=== PATIENT | female | born 1950 | race Caucasian/White ===

== ENCOUNTER 2017-01-28 08:51 | Day surgery (SDC) | payer OTHER ==
[2017-01-21 14:10] VITALS: BMI 19.3
[~2017-01-28 08:51] MED LIST: LACTATED RINGERS 1,000 ML IV SCH
[2017-01-28] MEDS: CYCLOPENTOLATE 1% OPHTH SOLN 2 ML BTL OP ONE ×3 (09:40→09:57)
[2017-01-28] MEDS: FLURBIPROFEN 0.03% OPHTH DROPS 2.5 ML BTL OP ONE ×3 (09:42→09:59)
[2017-01-28] MEDS: PHENYLEPHRINE 10% OPHTH DROPS 5 ML BTL OP ONE ×3 (09:44→10:03)
[2017-01-28] MEDS ORDERED: LACTATED RINGERS 1,000 ML IV ONE (09:45)
[2017-01-28] MEDS ORDERED: LIDOCAINE 1% 20 ML VIAL (10MG/ML) FOR IV START INTRADERMA ONE (09:45)
[2017-01-28 10:03] VITALS: RESP 16; TEMP 96.9
[2017-01-28] MEDS ORDERED: PROPOFOL 10 MG/ML 20 ML VIAL IV ONE (10:11)
[2017-01-28] MEDS ORDERED: HYALURONATE SODIUM INTRAOCULAR 1 EACH SYRINGE (10MG/ML) INTRAOCULA ONE (10:21)
[2017-01-28] MEDS ORDERED: BALANCED SALT IRRIG SOLN COMB2 15 ML IRRIG.SOLN INTRAOCULA ONE (10:21)
[2017-01-28] MEDS ORDERED: EPINEPHrine (PF) 0.5 ML in BALANCED SALT IRRIG SOLN COMB2 500 ML IRRIGATION ONE (10:22)
--- NOTE | 2017-01-28 10:36 | P.OP ---
Date of Procedure: 01/28/17 Preoperative Diagnosis: Postoperative Diagnosis: Procedure(s) Performed: PREOPERATIVE DIAGNOSIS: Cataract, right eye. POSTOPERATIVE DIAGNOSIS: Cataract, right eye. OPERATION: Phacoemulsification cataract, right eye. DESCRIPTION OF PROCEDURE: The patient was taken to the preoperative holding area. Intravenous Propofol was given so as to bring about adequate sedation. The following mixture was given for local anesthesia: 5 mL of 2% lidocaine, 5 mL of 0.75% Marcaine, and 1 mL of Wydase. Approximately 4 mL was injected in the retrobulbar space of the surgical eye. Additional 1 mL was then directed to the temporal area of the surgical eye. This was performed to allow adequate neurological block of the facial muscles. The patient was revived and then taken into the operative room. The patient was prepped and draped in the usual sterile manner for the operative eye. A lid speculum was put into position. The conjunctiva was resected back from the limbus in the 12 o'clock position. Bleeding was controlled with electrocautery. A #69 blade was then used and a half-thickness scleral incision approximately 1-mm posterior to the limbus was made on bare sclera. This was shelved in the clear cornea using a crescent knife. Next a 15-degree blade was used to make a stab incision at the 3 o' clock position at the corneolimbal interface. Keratome blade was then used and the superior wound was extended into the anterior chamber. Viscoelastic was injected into the anterior chamber and to maintain its form. Next, a cystotome was used and a continuous anterior capsulotomy was made without difficulty. Hydrodissection using a blunt cannula and BSS was performed. Phaco probe was then employed and a groove extending from 12 to 6 o'clock in the lens was created. A Man wand was used through the stab incision so as to perform a divide and conquer technique. Next an irrigation aspiration probe was utilized and any residual cortex was removed from the eye. Again, viscoelastic was injected into the anterior chamber. An Richard posterior chamber lens implant was placed in the cartridge and injected into the anterior chamber without difficulty. The TATE'S LISTey hook was utilized to spin the lens into position and this was again performed without any difficulty. The irrigation and aspiration probe was again employed and any residual viscoelastic was removed from the eye. Then BSS was injected into the limbal stab incision and the anterior chamber re-inflated. The conjunctiva was reapproximated using electrocautery. One drop of 0.25% Timoptic was placed over the corneal along with TobraDex ophthalmic ointment. Two sterile patches and a Bee eye shield were taped into position. The patient was transported to the recovery room in stable condition. Implants: Pathology: none sent Condition: stable Disposition: same day Indications for Procedure: Operative Findings: Description of Procedure:
[2017-01-28 10:54] VITALS: BP 118/69; PULSE 58
[2017-01-28] MEDS ORDERED: GENTAMICIN/PREDNISOL AC OPHTH OINT 3.5GM OPHTHALMIC ONE (23:00)
[2017-01-28] MEDS ORDERED: TIMOLOL 0.5% OPHTH SOLN (PF) 0.2 ML DROPERETTE OP ONE (23:00)
[2017-01-28] MEDS ORDERED: BUPIVACAINE (PF) 0.75% 5 ML, LIDOCAINE 4% (PF) 5 ML, HYALURONIDASE, HUMAN RECOMB 150 UNIT MISCELLANE ONE ×3 (23:00)
== END 2017-01-28 11:27 | disposition home or self-care (01) ==
LOC: OR 08:51
PROVIDERS: ATTEND Ophthalmology
DX: H25.13 Age-related nuclear cataract, bilateral (principal); F17.200 Nicotine dependence, unspecified, uncomplicated; I10 Essential (primary) hypertension; G62.9 Polyneuropathy, unspecified; E78.5 Hyperlipidemia, unspecified; E07.9 Disorder of thyroid, unspecified; J44.9 Chronic obstructive pulmonary disease, unspecified; Z88.0 Allergy status to penicillin; Z79.899 Other long term (current) drug therapy
CPT/HCPCS: 66984; V2632; J2001; J3470; J0171; J2704

== ENCOUNTER 2017-03-18 08:47 | Day surgery (SDC) | payer OTHER ==
[2017-03-10 14:48] VITALS: BMI 19.6
[~2017-03-18 08:47] MED LIST changes: +LIDOCAINE 1% 20 ML VIAL (10MG/ML) FOR IV START INTRADERMA PRN
[2017-03-18 10:35] VITALS: RESP 16; TEMP 97.9
[2017-03-18] MEDS ORDERED: fentaNYL (PF) 50 MCG/ML 2 ML AMP ONE (11:22)
[2017-03-18] MEDS ORDERED: PROPOFOL 10 MG/ML 20 ML VIAL IV ONE (11:22)
[2017-03-18] MEDS ORDERED: EPINEPHrine (PF) 0.5 ML in BALANCED SALT IRRIG SOLN COMB2 500 ML IRRIGATION ONE (11:22)
[2017-03-18] MEDS ORDERED: HYALURONATE SODIUM INTRAOCULAR 1 EACH SYRINGE (10MG/ML) INTRAOCULA ONE (11:25)
[2017-03-18] MEDS ORDERED: NEOMYCIN-POLYMYXIN-DEXAMETH OINT 3.5 GM TUBE LEFT EYE ONE (11:25)
[2017-03-18] MEDS ORDERED: BALANCED SALT IRRIG SOLN COMB2 15 ML IRRIG.SOLN INTRAOCULA ONE (11:25)
[2017-03-18] MEDS ORDERED: TIMOLOL 0.5% OPHTH SOLN (PF) 0.2 ML DROPERETTE LEFT EYE ONE (11:26)
[2017-03-18] MEDS ORDERED: TETRACAINE 0.5% OPHTH (PF) DROPS 4 ML BTL LEFT EYE ONE (11:34)
--- NOTE | 2017-03-18 11:45 | P.OP ---
Date of Procedure: 03/18/17 Preoperative Diagnosis: Postoperative Diagnosis: Procedure(s) Performed: PREOPERATIVE DIAGNOSIS: Cataract, left eye. POSTOPERATIVE DIAGNOSIS: Cataract, left eye. OPERATION: Phacoemulsification cataract, left eye. DESCRIPTION OF PROCEDURE: The patient was taken to the preoperative holding area. Intravenous Propofol was given so as to bring about adequate sedation. The following mixture was given for local anesthesia: 5 mL of 2% lidocaine, 5 mL of 0.75% Marcaine, and 1 mL of Wydase. Approximately 4 mL was injected in the retrobulbar space of the surgical eye. Additional 1 mL was then directed to the temporal area of the surgical eye. This was performed to allow adequate neurological block of the facial muscles. The patient was revived and then taken into the operative room. The patient was prepped and draped in the usual sterile manner for the operative eye. A lid speculum was put into position. The conjunctiva was resected back from the limbus in the 12 o'clock position. Bleeding was controlled with electrocautery. A #69 blade was then used and a half-thickness scleral incision approximately 1-mm posterior to the limbus was made on bare sclera. This was shelved in the clear cornea using a crescent knife. Next a 15-degree blade was used to make a stab incision at the 3 o' clock position at the corneolimbal interface. Keratome blade was then used and the superior wound was extended into the anterior chamber. Viscoelastic was injected into the anterior chamber and to maintain its form. Next, a cystotome was used and a continuous anterior capsulotomy was made without difficulty. Hydrodissection using a blunt cannula and BSS was performed. Phaco probe was then employed and a groove extending from 12 to 6 o'clock in the lens was created. A Man wand was used through the stab incision so as to perform a divide and conquer technique. Next an irrigation aspiration probe was utilized and any residual cortex was removed from the eye. Again, viscoelastic was injected into the anterior chamber. An Richard posterior chamber lens implant was placed in the cartridge and injected into the anterior chamber without difficulty. The Stem CentRxey hook was utilized to spin the lens into position and this was again performed without any difficulty. The irrigation and aspiration probe was again employed and any residual viscoelastic was removed from the eye. Then BSS was injected into the limbal stab incision and the anterior chamber re-inflated. The conjunctiva was reapproximated using electrocautery. One drop of 0.25% Timoptic was placed over the corneal along with TobraDex ophthalmic ointment. Two sterile patches and a Bee eye shield were taped into position. The patient was transported to the recovery room in stable condition. Implants: Pathology: none sent Condition: stable Disposition: same day Indications for Procedure: Operative Findings: Description of Procedure:
[2017-03-18 11:51] VITALS: PULSE 60
[2017-03-18 12:11] VITALS: BP 137/63
[2017-03-18] MEDS ORDERED: BUPIVACAINE (PF) 0.75% 5 ML, LIDOCAINE 4% (PF) 5 ML, HYALURONIDASE, HUMAN RECOMB 150 UNIT MISCELLANE ONE ×3 (23:00)
[2017-03-18] MEDS ORDERED: PHENYLEPHRINE 10% OPHTH DROPS 5 ML BTL OP ONE (23:00)
[2017-03-18] MEDS ORDERED: GENTAMICIN/PREDNISOL AC OPHTH OINT 3.5GM OPHTHALMIC ONE (23:00)
[2017-03-18] MEDS ORDERED: CYCLOPENTOLATE 1% OPHTH SOLN 2 ML BTL OP ONE (23:00)
[2017-03-18] MEDS ORDERED: FLURBIPROFEN 0.03% OPHTH DROPS 2.5 ML BTL OP ONE (23:00)
[2017-03-18] MEDS ORDERED: TIMOLOL 0.5% OPHTH SOLN (PF) 0.2 ML DROPERETTE OP ONE (23:00)
== END 2017-03-18 12:40 | disposition home or self-care (01) ==
LOC: OR 08:47
PROVIDERS: ATTEND Ophthalmology
DX: H25.12 Age-related nuclear cataract, left eye (principal); I10 Essential (primary) hypertension; E78.5 Hyperlipidemia, unspecified; J44.9 Chronic obstructive pulmonary disease, unspecified; E07.9 Disorder of thyroid, unspecified; G62.9 Polyneuropathy, unspecified; F17.200 Nicotine dependence, unspecified, uncomplicated; Z79.891 Long term (current) use of opiate analgesic; Z79.899 Other long term (current) drug therapy; Z88.0 Allergy status to penicillin
CPT/HCPCS: 66984; V2632; J2001; J3470; J0171; J3010; J2704

== ENCOUNTER 2020-09-28 12:32 | Observation (INO) | payer OTHER ==
[2020-09-28] MEDS ORDERED: MORPHINE SULFATE 4 MG/ML SYRINGE IV STA (12:40)
--- NOTE | 2020-09-28 12:55 | ED ---
General Adult HPI - General Stated complaint: Chest Pain/SOB Time Seen by Provider: 09/28/20 12:33 Source: patient, EMS, RN notes reviewed, old records reviewed Mode of arrival: EMS - History of Present Illness Initial comments: 70-year-old female presented for evaluation of upper abdominal pain and lower chest pain. History of anginal chest pain which she states she has almost every single day. Today her symptoms did not resolve after approximately 4 hours. She presented to emergency department via EMS. She has a history of an abdominal aortic aneurysm she states she has not had surgical intervention on this. She has no previous history of NE or cardiac stenting. She does report some associated nausea and one episode of vomiting. Patient has chronic pain and follows with neurology. She currently has a stimulator in her lumbar spine. No cough or fever. - Related Data Home Medications Medication Instructions Recorded Confirmed Atenolol [Tenormin] 25 mg PO DAILY 11/06/14 09/28/20 Atorvastatin [Lipitor] 20 mg PO DAILY 11/06/14 09/28/20 Baclofen 30 mg PO HS 11/06/14 09/28/20 Levothyroxine Sodium [Synthroid] 50 mcg PO DAILY 07/05/15 09/28/20 clonazePAM 2 mg PO BID PRN 07/05/15 09/28/20 Albuterol Sulfate [Ventolin HFA] 2 puff INHALATION RT-QID PRN 09/28/20 09/28/20 Gabapentin [Neurontin] 300 mg PO TID PRN 09/28/20 09/28/20 Soy Isofla/Blk Cohosh/Mag Bark 155 mg PO DAILY 09/28/20 09/28/20 [Estroven 155 mg Capsule] Allergies Allergy/AdvReac Type Severity Reaction Status Date / Time Penicillins Allergy Unknown Verified 09/28/20 13:11 Review of Systems ROS Statement: Those systems with pertinent positive or pertinent negative responses have been documented in the HPI. ROS Other: All systems not noted in ROS Statement are negative. Past Medical History Past Medical History: COPD, Hyperlipidemia, Hypertension, Thyroid Disorder Additional Past Medical History / Comment(s): neuropathy, aneursym and blood clot rt lower rib area History of Any Multi-Drug Resistant Organisms: None Reported Past Surgical History: Back Surgery, Breast Surgery, Section, Hysterectomy Additional Past Surgical History / Comment(s): 3 lower back surgeries- has implants and thuy, bilateral breast cystectomies, 4 C-Sections, surgery to rt lung to repair holes in lungs "stented and coiled", rt cataract Past Anesthesia/Blood Transfusion Reactions: No Reported Reaction Additional Past Anesthesia/Blood Transfusion Reaction / Comment(s): Pt has never recieved blood. Past Psychological History: No Psychological Hx Reported Smoking Status: Current every day smoker Past Alcohol Use History: Occasional Past Drug Use History: None Reported - Past Family History Brother(s) Family Medical History: Cancer Sister(s) Family Medical History: Cancer Father Family Medical History: Myocardial Infarction (NE) Additional Family Medical History / Comment(s): Father at age 52 yrs of a NE. Mother Family Medical History: Cancer, Coronary Artery Disease (CAD), Hyperlipidemia Additional Family Medical History / Comment(s): Mother at age 72 yrs of lung cancer. General Exam General appearance: alert, in no apparent distress Head exam: Present: atraumatic, normocephalic Eye exam: Present: normal appearance, PERRL ENT exam: Present: normal exam Neck exam: Present: normal inspection. Absent: tenderness, meningismus Respiratory exam: Present: normal lung sounds bilaterally. Absent: respiratory distress Cardiovascular Exam: Present: regular rate, normal rhythm GI/Abdominal exam: Present: soft. Absent: distended, tenderness, guarding, rebound Extremities exam: Present: normal inspection, normal capillary refill. Absent: pedal edema Neurological exam: Present: alert, oriented X3, CN II-XII intact. Absent: motor sensory deficit Psychiatric exam: Present: normal affect, normal mood Skin exam: Present: warm, dry, intact. Absent: cyanosis, diaphoretic Course Vital Signs 09/28/20 09/28/20 12:36 15:04 Temperature 97.7 F Pulse Rate 70 56 L Respiratory 18 18 Rate Blood Pressure 141/97 124/64 O2 Sat by Pulse 95 95 Oximetry EKG Findings - EKG Comments: EKG Findings:: . This appears to be sinus rhythm which is no complex, rate of 64, QRS duration 160, QTC appears normal, there is no way to differentiate aiding ST segment elevation on this EKG secondary to neuro stimulator artifact. Repeat EKG, normal sinus rhythm, rate of 62, NJ interval 136, QRS duration 98, QTC 43, no ST segment elevation, EKG was repeated at 1304. Medical Decision Making - Medical Decision Making 62-year-old female presenting with an episode chest pain and upper abdominal pain. EKG sinus rhythm without ST segment elevation. Chest x-ray is negative for acute cardiopulmonary disease, showing some chronic changes. CT angiography is performed given her history of abdominal aortic aneurysm this is negative for aneurysm, negative for dissection, negative for acute findings. Her symptoms are improved while in the emergency department. Her initial troponin is negative. I did discuss case with Dr. Guido who will admit for chest pain rule out. Cardiology placed on consult. - Lab Data Result diagrams: 09/28/20 12:59 09/28/20 12:59 Lab Results 09/28/20 09/28/20 09/28/20 Range/Units 12:59 12:59 12:59 WBC 5.8 (3.8-10.6) k/uL RBC 4.48 (3.80-5.40) m/uL Hgb 14.0 (11.4-16.0) gm/dL Hct 41.6 (34.0-46.0) % MCV 92.8 (80.0-100.0) fL MCH 31.2 (25.0-35.0) pg MCHC 33.6 (31.0-37.0) g/dL RDW 13.9 (11.5-15.5) % Plt Count 154 (150-450) k/uL MPV 7.0 Neutrophils % 53 % Lymphocytes % 39 % Monocytes % 4 % Eosinophils % 2 % Basophils % 1 % Neutrophils # 3.1 (1.3-7.7) k/uL Lymphocytes # 2.3 (1.0-4.8) k/uL Monocytes # 0.3 (0-1.0) k/uL Eosinophils # 0.1 (0-0.7) k/uL Basophils # 0.0 (0-0.2) k/uL PT 10.5 (9.0-12.0) sec INR 1.0 (<1.2) APTT 23.9 (22.0-30.0) sec Sodium 137 (137-145) mmol/L Potassium 4.5 (3.5-5.1) mmol/L Chloride 111 H (98-107) mmol/L Carbon Dioxide 22 (22-30) mmol/L Anion Gap 4 mmol/L BUN 16 (7-17) mg/dL Creatinine 0.44 L (0.52-1.04) mg/dL Est GFR (CKD-EPI)AfAm >90 (>60 ml/min/1.73 sqM) Est GFR (CKD-EPI)NonAf >90 (>60 ml/min/1.73 sqM) Glucose 104 H (74-99) mg/dL Plasma Lactic Acid Grady (0.7-2.0) mmol/L Calcium 8.8 (8.4-10.2) mg/dL Magnesium 1.8 (1.6-2.3) mg/dL Total Bilirubin 0.4 (0.2-1.3) mg/dL AST 26 (14-36) U/L ALT 16 (4-34) U/L Alkaline Phosphatase 85 (38-126) U/L Troponin I (0.000-0.034) ng/mL NT-Pro-B Natriuret Pep pg/mL Total Protein 6.1 L (6.3-8.2) g/dL Albumin 3.6 (3.5-5.0) g/dL Lipase 217 (23-300) U/L 09/28/20 09/28/20 09/28/20 Range/Units 12:59 12:59 12:59 WBC (3.8-10.6) k/uL RBC (3.80-5.40) m/uL Hgb (11.4-16.0) gm/dL Hct (34.0-46.0) % MCV (80.0-100.0) fL MCH (25.0-35.0) pg MCHC (31.0-37.0) g/dL RDW (11.5-15.5) % Plt Count (150-450) k/uL MPV Neutrophils % % Lymphocytes % % Monocytes % % Eosinophils % % Basophils % % Neutrophils # (1.3-7.7) k/uL Lymphocytes # (1.0-4.8) k/uL Monocytes # (0-1.0) k/uL Eosinophils # (0-0.7) k/uL Basophils # (0-0.2) k/uL PT (9.0-12.0) sec INR (<1.2) APTT (22.0-30.0) sec Sodium (137-145) mmol/L Potassium (3.5-5.1) mmol/L Chloride (98-107) mmol/L Carbon Dioxide (22-30) mmol/L Anion Gap mmol/L BUN (7-17) mg/dL Creatinine (0.52-1.04) mg/dL Est GFR (CKD-EPI)AfAm (>60 ml/min/1.73 sqM) Est GFR (CKD-EPI)NonAf (>60 ml/min/1.73 sqM) Glucose (74-99) mg/dL Plasma Lactic Acid Grady 1.0 (0.7-2.0) mmol/L Calcium (8.4-10.2) mg/dL Magnesium (1.6-2.3) mg/dL Total Bilirubin (0.2-1.3) mg/dL AST (14-36) U/L ALT (4-34) U/L Alkaline Phosphatase (38-126) U/L Troponin I <0.012 (0.000-0.034) ng/mL NT-Pro-B Natriuret Pep 121 pg/mL Total Protein (6.3-8.2) g/dL Albumin (3.5-5.0) g/dL Lipase (23-300) U/L Disposition Clinical Impression: Chest pain Disposition: ADMITTED IP TO THIS [facility] Condition: Stable Is patient prescribed a controlled substance at d/c from ED?: No Referrals: Nonstaff,Physician [Primary Care Provider] - 1-2 days Decision to Admit Reason: Admit from EC Decision Date: 09/28/20 Decision Time: 15:33
[2020-09-28] MEDS ORDERED: ONDANSETRON 4 MG/2 ML VIAL IVP STA (13:12)
[2020-09-28 13:27] LABS: Basophils % (A) 1 %; Eosinophils # (A) 0.1 k/uL (0-0.7); Eosinophils % (A) 2 %; HCT 41.6 % (34.0-46.0); Lymphocytes # (A) 2.3 k/uL (1.0-4.8); Lymphocytes % (A) 39 %; MCH 31.2 pg (25.0-35.0); MCHC 33.6 g/dL (31.0-37.0); MCV 92.8 fL (80.0-100.0); Monocytes # (A) 0.3 k/uL (0-1.0); Monocytes % (A) 4 %; Neutrophils # (A) 3.1 k/uL (1.3-7.7); Neutrophils % (A) 53 %; Platelet Count 154 k/uL (150-450); RBC 4.48 m/uL (3.80-5.40); RDW 13.9 % (11.5-15.5); WBC 5.8 k/uL (3.8-10.6)
[2020-09-28 13:32] LABS: Partial Thromboplastin Time 23.9 sec (22.0-30.0); Prothrombin Time 10.5 sec (9.0-12.0)
[2020-09-28 13:34] LABS: ALT 16 U/L (4-34); AST 26 U/L (14-36); African American GFR (CKD) >90 (>60 ml/min/1.73 sqM); Albumin 3.6 g/dL (3.5-5.0); Alkaline Phosphatase 85 U/L (38-126); Anion Gap 4 mmol/L; Blood Urea Nitrogen 16 mg/dL (7-17); Calcium 8.8 mg/dL (8.4-10.2); Carbon Dioxide 22 mmol/L (22-30); Chloride 111 mmol/L (98-107); Glucose 104 mg/dL (74-99); Lipase 217 U/L (23-300); Magnesium 1.8 mg/dL (1.6-2.3); Non-African American GFR(CKD) >90 (>60 ml/min/1.73 sqM); Sodium 137 mmol/L (137-145); Total Bilirubin 0.4 mg/dL (0.2-1.3); Total Protein 6.1 g/dL (6.3-8.2)
[2020-09-28 13:35] LABS: Potassium 4.5 mmol/L (3.5-5.1)
--- NOTE | 2020-09-28 14:01 | XR ---
EXAMINATION TYPE: XR chest 1V portable DATE OF EXAM: 09/28/2020 COMPARISON: Chest x-ray and CT chest July 05, 2015 HISTORY: Chest pain. TECHNIQUE: Single AP portable frontal upright view of the chest is obtained. FINDINGS: Background Chronic emphysematous and pulmonary fibrotic change including right apical 1.5 c m scarlike opacity all redemonstrated. There is no new suspicious focal air space opacity, pleural ef fusion, or pneumothorax seen. The cardiac silhouette size is stable and within normal limits. Spinal stimulator device in the mid thoracic spinal canal redemonstrated. Surgical clips project in right p aratracheal region may be external to patient, correlate clinically. IMPRESSION: Chronic changes without new acute pulmonary process.
--- NOTE | 2020-09-28 14:51 | CT ---
EXAMINATION TYPE: CT angio thor/abd pel aorta DATE OF EXAM: 09/28/2020 COMPARISON: CTA aorta April 28, 2015 HISTORY: Chest pain with history of aneurysm. CT DLP: 610.1 mGycm. Automated Exposure Control for Dose Reduction was Utilized. CONTRAST: CTA scan of the thorax, abdomen and pelvis is performed without and with IV Contrast, patient injecte d with 100 mL of Isovue 370. 3-D reconstructed images were created on an independent workstation and reviewed. FINDINGS: VASCULAR: Noncontrast images show no suspicious hypodensity to suggest intramural hematoma. Satisfact ory enhancement of central pulmonary arteries. Normal 3 vessel origins from the aortic arch. Mild mix ed plaque in the descending aorta. Focal moderate mixed plaque at origin of the celiac artery without stenosis. Patent SMA without significant stenosis moderate to severe mixed plaque at origin of bilat eral renal arteries. Moderate to severe mixed plaque in the infrarenal abdominal aorta with some ecta petar but not greater than 3.0 cm aneurysm. Mild plaque left common iliac artery. Mild plaque in the ex ternal iliac arteries bilaterally. More moderate mixed plaque in the femoral arteries. No significant stenosis. No linear hypodensity to suggest dissection. LUNGS: Moderate emphysematous change with stable nodular parenchymal scarring right upper lung extend ing posteriorly image 17 unchanged from July 05, 2015 CT. [id number] scattered linear scarr ing and/or atelectasis. No pleural effusion or pneumothorax. No new nodules. MEDIASTINUM: There are enlarged bilateral hilar lymph nodes of low density on current study. No car diomegaly or pericardial effusion is seen. LIVER/GB: Occasional subcentimeter lesions scattered throughout the liver too small to further charac terize. PANCREAS: Stable prominence of the distal body and tail. SPLEEN: No significant abnormality is seen. ADRENALS: No significant abnormality is seen. KIDNEYS: Scattered thin-walled cysts of varying sizes and shapes throughout both kidneys. Stable 5 mm posterior right upper lobe renal calculus axial image 115. BOWEL: Suboptimal evaluation without enteric contrast and patient having little intra-abdominal fat. No suspicious bowel dilatation. [id number]-[id number] prominence of fecal material in the rectum. GENITAL ORGANS: Uterus surgically absent markedly atrophic. LYMPH NODES: No greater than 1cm abdominal or pelvic lymph nodes are appreciated. OSSEOUS STRUCTURES: Postsurgical change lumbosacral junction. Spinal stimulator device in the mid pos terior thoracic spinal canal. OTHER: No significant additional abnormality is seen. IMPRESSION: No aortic aneurysm or dissection. No acute findings are evident
[2020-09-28] MEDS ORDERED: ASPIRIN 325 MG TAB PO STA (15:14)
[2020-09-28] MEDS ORDERED: ACETAMINOPHEN TAB 325 MG TAB PO PRN (15:31)
[2020-09-28] MEDS ORDERED: NALOXONE 0.4 MG/ML 1 ML VIAL IV PRN (15:31)
[2020-09-28] MEDS ORDERED: ONDANSETRON 4 MG/2 ML VIAL IVP PRN (15:31)
[2020-09-28] MEDS ORDERED: MORPHINE SULFATE 4 MG/ML SYRINGE IV PRN (15:31)
[2020-09-28] MEDS ORDERED: clonazePAM 1 MG TAB PO PRN (16:12)
[2020-09-28] MEDS ORDERED: GABAPENTIN 300 MG CAP PO PRN (16:12)
[2020-09-28] MEDS ORDERED: ALBUTEROL NEBULIZED 2.5 MG/3 ML INHALATION PRN (16:12)
[2020-09-28] MEDS ORDERED: ALPRAZolam 0.25 MG TAB PO PRN (16:13)
[2020-09-28] MEDS ORDERED: HYDROcodone/APAP 5-325MG 1 EACH TAB PO PRN (16:13)
[2020-09-28] MEDS ORDERED: TEMAZEPAM 15 MG CAP PO PRN (16:13)
[2020-09-28 17:14] LABS: Appearance,Urine Clear (Clear); Bilirubin,Urine Negative (Negative); Blood,Urine Trace (Negative); Color,Urine Light Yellow; Glucose,Urine (UA) Negative (Negative); Ketones,Urine Negative (Negative); Leukocyte Esterase,Urine Moderate (Negative); Mucus,Urine Rare /hpf; Nitrite,Urine Negative (Negative); PH, Urine 6.5 (5.0-8.0); Protein,Urine Negative (Negative); RBC,Urine 1 /hpf (0-5); Specific Gravity,Urine 1.006 (1.001-1.035); Squamous Epithelial Cell,Urine <1 /hpf (0-4); Urobilinogen,Urine <2.0 mg/dL (<2.0); WBC,Urine 2 /hpf (0-5)
[2020-09-28 17:22] LABS: Amphetamine Screen,Urine Not Detected (NotDetected); Barbiturate Screen,Urine Not Detected (NotDetected); Benzodiazepines Screen,Urine Not Detected (NotDetected); Cocaine Screen,Urine Not Detected (NotDetected); Methadone Screen, Urine Not Detected (NotDetected); Opiate Screen,Urine Detected (NotDetected); Phencyclidine Screen,Urine Not Detected (NotDetected); Tricyclic Antidepressant,Urine Not Detected (NotDetected); Urn Cannabinoid Scrn Not Detected (NotDetected)
[2020-09-28 17:23] LABS: Oxycodone Screen, Urine Not Detected (NotDetected)
--- NOTE | 2020-09-28 17:36 | HP ---
HISTORY AND PHYSICAL DATE OF SERVICE: 09/28/2020 CHIEF COMPLAINT: Chest pain. HISTORY OF PRESENT ILLNESS: This 70-year-old woman with a past medical history of multiple medical problems, including COPD, hypertension, hyperlipidemia, hypothyroidism, history of DJD, history of breast surgery, was complaining of upper abdominal pain for some time. The patient today had significant upper abdominal pain which was also with chest tightness and pressure, 10/10, which lasted for at least 4 hours. The patient was taken to [facility] by EMS and multiple medications, including nitroglycerin, was given. The pain is coming down to 3/10 in intensity. The patient was admitted for further evaluation and treatment. There is no history of associated sweating or palpitations. No history of headache, loss of consciousness, seizures. The initial labs showed total protein of 6.1. Troponin was less than 0.012. BNP was normal. Initial EKG, which was reviewed personally by me, showed some non-ST-T changes, and a thoracic aortic CT scan was done which showed no aortic aneurysm or dissection. No acute finding was noted. The patient was admitted for further evaluation and treatment. There is no history of any fever, rigor or chills. No history of headache, loss of consciousness, seizures. PAST MEDICAL HISTORY: History of COPD, hypertension, hyperlipidemia, history of hypothyroidism, back surgery, breast surgery. HOME MEDICATIONS: Albuterol, soy, Neurontin, clonazepam, Synthroid, baclofen, Lipitor, Tenormin. ALLERGIES: PENICILLIN. FAMILY HISTORY: History of myocardial infarction in the family. SOCIAL HISTORY: History of smoking. History of alcohol intake. REVIEW OF SYSTEMS: ENT: No diminished hearing. No diminished vision. CARDIOVASCULAR SYSTEM: As mentioned earlier. RESPIRATORY SYSTEM: As mentioned earlier. GI: As mentioned earlier. : No dysuria or retention. NERVOUS SYSTEM: No numbness, weakness. ALLERGY/IMMUNOLOGY: No asthma, hayfever. MUSCULOSKELETAL: As mentioned earlier. HEMATOLOGY/ONCOLOGY: No history of anemia. ENDOCRINE: Hypothyroidism. CONSTITUTIONAL: As mentioned earlier. DERMATOLOGY: Negative. RHEUMATOLOGY: Negative. PSYCHIATRY: Negative. PHYSICAL EXAMINATION: Patient alert and oriented x3. Pulse 56, blood pressure 124/64, respiration 18, temperature 97.7, pulse ox 94% on room air. HEENT: Conjunctivae normal. NECK: No jugular venous distention. CARDIOVASCULAR SYSTEM: S1, S2 muffled. RESPIRATORY SYSTEM: Breath sounds diminished at the bases. No rhonchi. No crackles. ABDOMEN: Soft, non-tender. No mass palpable. LEGS: No edema. No swelling. NERVOUS SYSTEM: Higher functions as mentioned earlier. Moves all 4 limbs. No focal motor or sensory deficit. LYMPHATICS: No lymph node palpable in neck, axillae or groin. SKIN: No ulcer, rash, bleeding. JOINTS: No active deforming arthropathy. LABS: CBC within normal limits. Sodium 137, potassium 4.5, creatinine 0.44. Other labs are noted. ASSESSMENT: 1. Chest pain, possible unstable angina. 2. Possible gastroesophageal reflux disease. 3. History of chronic obstructive pulmonary disease. 4. Hypertension. 5. Hyperlipidemia. 6. History of hypothyroidism. 7. History of aneurysm and blood clot in the left lower rib area. 8. History of breast surgery. 9. History of 4 sections. 10.History of nicotine dependence. 11.Mild protein-calorie malnutrition. 12.FULL CODE. RECOMMENDATIONS AND DISCUSSION: In this 70-year-old woman who presented with multiple complex medical issues, we will monitor the patient closely, continue the current medications, unstable angina protocol. Follow closely with Cardiology. Possible stress test. Guarded prognosis because of multiple complex medical issues. Further recommendations to follow. MMODL / IJN: [id number] /
[2020-09-28 18:38] VITALS: RESP 16
[2020-09-28] MEDS: PANTOPRAZOLE 40 MG/10 ML VIAL IVP SCH (20:34)
[2020-09-28] MEDS: NICOTINE 14MG/24HR PATCH TRANSDERM SCH (20:35)
[2020-09-28] MEDS ORDERED: BACLOFEN 10 MG TAB PO SCH (21:00)
[2020-09-29] MEDS ORDERED: LEVOTHYROXINE 50 MCG TAB PO SCH (06:30)
[2020-09-29] MEDS: PANTOPRAZOLE 40 MG/10 ML VIAL IVP SCH (08:39)
[2020-09-29] MEDS: NICOTINE 14MG/24HR PATCH TRANSDERM SCH (08:39)
[2020-09-29 08:50] VITALS: BP 143/69; PULSE 68; TEMP 97.5
[2020-09-29] MEDS ORDERED: REGADENOSON 0.4 MG/5 ML SYRINGE IV PRN (09:00)
[2020-09-29] MEDS ORDERED: ATORVASTATIN 20 MG TAB PO SCH (09:00)
[2020-09-29] MEDS ORDERED: AMINOPHYLLINE 500 MG/20 ML VIAL IV PRN (09:00)
[2020-09-29] MEDS ORDERED: ASPIRIN 325 MG TAB PO SCH (09:00)
[2020-09-29] MEDS ORDERED: atenoloL 25 MG TAB PO SCH (09:00)
[2020-09-29] MEDS ORDERED: CAFFEINE CITRATE 60 MG/3 ML VIAL IV PRN (09:00)
[2020-09-29 09:31] LABS: Basophils # (A) 0.03 X 10*3/uL (0.00-0.10); Basophils % (A) 0.5 %; Eosinophils % (A) 1.8 %; HCT 41.8 % (37.2-46.3); HGB 13.7 g/dL (12.0-15.0); Lymphocytes % (A) 43.8 %; MCH 30.6 pg (27.0-32.0); MCHC 32.8 g/dL (32.0-37.0); MCV 93.3 fL (80.0-97.0); Mean Platelet Volume 9.8 fL (9.5-12.2); Monocytes # (A) 0.43 X 10*3/uL (0.20-1.00); Monocytes % (A) 7.5 %; Neutrophils # (A) 2.64 X 10*3/uL (1.80-7.70); Neutrophils % (A) 46.2 %; Platelet Count 145 X 10*3/uL (140-440); RBC 4.48 X 10*6/uL (4.10-5.20); RDW 14.5 % (11.5-14.5); WBC 5.71 X 10*3/uL (4.50-10.00)
--- NOTE | 2020-09-29 09:40 | ECHOF ---
Referral Reason:chest pain MEASUREMENTS -------- HEIGHT: 167.6 cm WEIGHT: 49.9 kg BP: 98/60 RVIDd: 2.4 cm (< 3.3) IVSd: 1.1 cm (0.6 - 1.1) LVIDd: 4.6 cm (3.9 - 5.3) LVPWd: 1.1 cm (0.6 - 1.1) IVSs: 1.6 cm LVIDs: 2.8 cm LVPWs: 1.5 cm LA Diam: 3.3 cm (2.7 - 3.8) LAESV Index (A-L): 26.57 ml/m Ao Diam: 2.9 cm (2.0 - 3.7) AV Cusp: 2.1 cm (1.5 - 2.6) MV EXCURSION: 19.783 mm (> 18.000) MV EF SLOPE: 158 mm/s (70 - 150) EPSS: 0.2 cm MV E Robert: 0.83 m/s MV DecT: 171 ms MV A Robert: 0.65 m/s MV E/A Ratio: 1.26 RAP: 5.00 mmHg RVSP: 33.06 mmHg FINDINGS -------- Sinus rhythm. This was a technically good study. The left ventricular size is normal. There is borderline concentric left ventricular hypertrophy. Overall left ventricular systolic function is normal with, an EF between 60 - 65 %. The right ventricle is normal in size. Normal LA size by volume 22+/-6 ml/m2. The right atrium is normal in size. Interatrial and interventricular septum intact. The aortic valve is trileaflet and appears structurally normal. Mild mitral regurgitation is present. Mild tricuspid regurgitation present. There is borderline pulmonary artery hypertension. The righ t ventricular systolic pressure, as measured by Doppler, is 33.06mmHg. Trace/mild (physiologic) pulmonic regurgitation. The aortic root size is normal. Normal inferior vena cava with normal inspiratory collapse consistent with estimated right atrial pre ssure of 5 mmHg. There is no pericardial effusion. CONCLUSIONS -------- 1. The left ventricular size is normal. 2. There is borderline concentric left ventricular hypertrophy. 3. Overall left ventricular systolic function is normal with, an EF between 60 - 65 %. 4. Mild mitral regurgitation is present. 5. Mild tricuspid regurgitation present. 6. There is borderline pulmonary artery hypertension. 7. The right ventricular systolic pressure, as measured by Doppler, is 33.06mmHg. 8. Trace/mild (physiologic) pulmonic regurgitation. 9. There is no pericardial effusion. OR DIRECTOR: Chelsea Marion RDCS
[2020-09-29 09:58] LABS: African American GFR (CKD) 115.3 (60.0-200.0); Anion Gap 2.5 mmol/L (4.00-12.00); Carbon Dioxide 29.5 mmol/L (21.6-31.8); Non-African American GFR(CKD) 99.4 (60.0-200.0); Potassium 4.1 mmol/L (3.5-5.5)
--- NOTE | 2020-09-29 10:59 | P.CRDCN ---
History of Present Illness Consult date: 09/29/20 History of present illness: CHIEF COMPLAINT: Chest pain HISTORY OF PRESENT ILLNESS: This is a 70-year-old female with a past medical history significant for hypertension, hyperlipidemia, abdominal aortic aneurysm, nicotine dependence, and family history of coronary artery disease. 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 We have been asked to see the patient in consultation for chest pain. Patient examined this point the bedside. Patient states she has been having chest pain intermittently over the past 2-3 weeks under both breasts. She states yesterday she began having left-sided chest pain that radiated to the right side of her chest and also into her back. She reports feeling short of breath. She reports nausea without vomiting. She reports diaphoresis. She states the pain felt like a squeezing sensation. She states the pain lasted approximately 30 minutes. When EMS arrived they gave her sublingual nitro which she states relieved the pain. At the time of examination this morning, the patient is not having any chest pain or pressure. DIAGNOSTICS: EKG reveals sinus mechanism with no signs of acute ischemia Chest xray chronic changes without no acute pulmonary process Laboratory data: WBC 5.71. Hemoglobin 13.7. Platelet count 145. D-dimer 0.33. Sodium 141. Potassium 4.1. BUN 17. Creatinine 0.5. Troponin negative 3 Current home cardiac medications include atenolol 25 mg daily and Lipitor 20 mg daily REVIEW OF SYSTEMS: At the time of my exam: CONSTITUTIONAL: Denies fever or chills. HEENT: Denies blurred vision, vision changes, or eye pain. Denies hemoptysis CARDIOVASCULAR: Denies chest pain, orthopnea, PND or palpitations RESPIRATORY: No shortness of breath. GASTROINTESTINAL: Denies abdominal pain. Denies nausea or vomiting. HEMATOLOGIC: Denies bleeding disorders. GENITOURINARY: Denies any blood in urine. SKIN: Denies pruitis. Denies rash. PHYSICAL EXAM: VITAL SIGNS: Reviewed. GENERAL: Well-developed in no acute distress. HEENT: Head is normocephalic. Pupils are equal, round. Sclerae anicteric. Mucous membranes of the mouth are moist. Neck supple. No JVD or thyromegaly LUNGS: Respirations even and unlabored. Lungs essentially clear to auscultation bilaterally. HEART: Regular rate and rhythm. S1 and S2 heard. ABDOMEN: Soft. Nondistended. Nontender. EXTREMITIES: Normal range of motion. No clubbing or cyanosis. Peripheral pulses intact. No lower extremity edema NEUROLOGIC: Awake and alert. Oriented x 3. ASSESSMENT: Chest pain, troponins negative 3 Hypertension Hyperlipidemia History of abdominal aortic aneurysm Nicotine dependence, patient smokes 1 pack per day Family history of cardiac disease PLAN: Resume home cardiac medications An acute coronary event has been ruled out Obtain 2D echo to assess cardiac structure and function Patient to undergo Cheli scan stress test today Further recommendations pending patient course Nurse practitioner note has been reviewed by physician. Signing provider agrees with the documented findings, assessment, and plan of care. Past Medical History Past Medical History: COPD, Hyperlipidemia, Hypertension, Thyroid Disorder Additional Past Medical History / Comment(s): neuropathy, aneursym and blood jose luis t rt lower rib area History of Any Multi-Drug Resistant Organisms: None Reported Past Surgical History: Back Surgery, Breast Surgery, Section, Hysterectomy Additional Past Surgical History / Comment(s): 3 lower back surgeries- has implants and thuy, bilateral breast cystectomies, 4 C-Sections, surgery to rt lung to repair holes in lungs "stented and coiled", rt cataract Past Anesthesia/Blood Transfusion Reactions: No Reported Reaction Additional Past Anesthesia/Blood Transfusion Reaction / Comment(s): Pt has never recieved blood. Past Psychological History: No Psychological Hx Reported Additional Psychological History / Comment(s): Pt resides with her spouse and 2 adult sons. She is normally independent. She uses no assistive device. She drives. Smoking Status: Current every day smoker Past Alcohol Use History: Occasional Additional Past Alcohol Use History / Comment(s): smoker since age 14 <1ppd Past Drug Use History: None Reported - Past Family History Brother(s) Family Medical History: Cancer Sister(s) Family Medical History: Cancer Father Family Medical History: Myocardial Infarction ([place]) Additional Family Medical History / Comment(s): Father at age 52 yrs of a [place]. Mother Family Medical History: Cancer, Coronary Artery Disease (CAD), Hyperlipidemia Additional Family Medical History / Comment(s): Mother at age 72 yrs of lung cancer. Medications and Allergies Home Medications Medication Instructions Recorded Confirmed Type Atenolol [Tenormin] 25 mg PO DAILY 11/06/14 09/28/20 History Atorvastatin [Lipitor] 20 mg PO DAILY 11/06/14 09/28/20 History Baclofen 30 mg PO HS 11/06/14 09/28/20 History Levothyroxine Sodium [Synthroid] 50 mcg PO DAILY 07/05/15 09/28/20 History clonazePAM 2 mg PO BID PRN 07/05/15 09/28/20 History Albuterol Sulfate [Ventolin HFA] 2 puff INHALATION RT-QID PRN 09/28/20 09/28/20 History Gabapentin [Neurontin] 300 mg PO TID PRN 09/28/20 09/28/20 History Soy Isofla/Blk Cohosh/Mag Bark 155 mg PO DAILY 09/28/20 09/28/20 History [Estroven 155 mg Capsule] Allergies Allergy/AdvReac Type Severity Reaction Status Date / Time Penicillins Allergy Unknown Verified 09/28/20 13:11 Physical Exam Vitals: Vital Signs Temp Pulse Pulse Resp BP BP Pulse Ox 09/29/20 08:00 97.5 F L 68 16 143/69 95 09/29/20 02:00 97.6 F 70 16 98/60 93 L 09/28/20 20:00 97.6 F 58 L 16 117/71 96 09/28/20 18:38 97.6 F 58 L 16 117/71 96 09/28/20 17:57 98.2 F 64 18 130/84 96 09/28/20 17:50 97.6 F 58 L 16 117/71 96 09/28/20 15:04 56 L 18 124/64 95 09/28/20 12:36 97.7 F 70 18 141/97 95 Intake and Output 09/28/20 09/29/20 09/29/20 22:59 06:59 14:59 Intake Total 240 Balance 240 Intake: Oral 240 Other: Voiding Method Toilet Toilet # Voids 1 2 Weight 49.895 kg Results 09/29/20 06:03 09/29/20 06:03 Cardiac Enzymes 09/28/20 09/28/20 09/28/20 Range/Units 12:59 12:59 16:47 AST 26 (14-36) U/L Troponin I <0.012 <0.012 (0.000-0.034) ng/mL 09/28/20 Range/Units 20:07 AST (14-36) U/L Troponin I <0.012 (0.000-0.034) ng/mL Coagulation 09/28/20 Range/Units 12:59 PT 10.5 (9.0-12.0) sec APTT 23.9 (22.0-30.0) sec CBC 09/28/20 09/29/20 Range/Units 12:59 06:03 WBC 5.8 5.71 (3.8-10.6) k/uL RBC 4.48 4.48 (3.80-5.40) m/uL Hgb 14.0 13.7 (11.4-16.0) gm/dL Hct 41.6 41.8 (34.0-46.0) % Plt Count 154 145 (150-450) k/uL Comprehensive Metabolic Panel 09/28/20 09/29/20 Range/Units 12:59 06:03 Sodium 137 141 (137-145) mmol/L Potassium 4.5 4.1 (3.5-5.1) mmol/L Chloride 111 H 109 (98-107) mmol/L Carbon Dioxide 22 29.5 (22-30) mmol/L BUN 16 17.0 (7-17) mg/dL Creatinine 0.44 L 0.5 L (0.52-1.04) mg/dL Glucose 104 H 80 (74-99) mg/dL Calcium 8.8 9.0 (8.4-10.2) mg/dL AST 26 (14-36) U/L ALT 16 (4-34) U/L Alkaline Phosphatase 85 (38-126) U/L Total Protein 6.1 L (6.3-8.2) g/dL Albumin 3.6 (3.5-5.0) g/dL Current Medications Generic Name Dose Route Start Last Admin Trade Name Freq PRN Reason Stop Dose Admin Acetaminophen 650 mg 09/28/20 15:31 Acetaminophen Tab 325 Mg Tab PO Q6HR PRN Mild Pain or Fever > 100.5 Hydrocodone Bitart/Acetaminophen 1 each 09/28/20 16:13 09/29/20 08:46 Hydrocodone/Apap 5-325mg 1 Each Tab PO 1 each Q6HR PRN Administration Pain Albuterol Sulfate 2.5 mg 09/28/20 16:12 Albuterol Nebulized 2.5 Mg/3 Ml INHALATION RT-QID PRN Shortness Of Breath Alprazolam 0.25 mg 09/28/20 16:13 Alprazolam 0.25 Mg Tab PO TID PRN Anxiety Aminophylline 100 mg 09/29/20 09:00 Aminophylline 500 Mg/20 Ml Vial IV 09/29/20 13:01 ONCE PRN Patient Response Atenolol 25 mg 09/29/20 09:00 09/29/20 09:13 Atenolol 25 Mg Tab PO Not Given DAILY CARLOS Atorvastatin Calcium 20 mg 09/29/20 09:00 09/29/20 08:39 Atorvastatin 20 Mg Tab PO 20 mg DAILY CARLOS Administration Baclofen 30 mg 09/28/20 21:00 09/28/20 20:34 Baclofen 10 Mg Tab PO 30 mg HS CARLOS Administration Caffeine Citrate 60 mg 09/29/20 09:00 Caffeine Citrate 60 Mg/3 Ml Vial IV 09/29/20 13:01 ONCE PRN Patient Response Clonazepam 2 mg 09/28/20 16:12 09/28/20 20:34 Clonazepam 1 Mg Tab PO 2 mg BID PRN Administration ANXIETY/SLEEP Gabapentin 300 mg 09/28/20 16:12 09/28/20 20:35 Gabapentin 300 Mg Cap PO 300 mg TID PRN Administration NERVE PAIN Levothyroxine Sodium 50 mcg 09/29/20 06:30 09/29/20 05:26 Levothyroxine 50 Mcg Tab PO 50 mcg 0630 CARLOS Administration Morphine Sulfate 4 mg 09/28/20 15:31 Morphine Sulfate 4 Mg/Ml Syringe IV Q4HR PRN Severe Pain Naloxone HCl 0.2 mg 09/28/20 15:31 Naloxone 0.4 Mg/Ml 1 Ml Vial IV Q2M PRN Opioid Reversal Nicotine 1 patch 09/28/20 16:15 09/29/20 08:39 Nicotine 14mg/24hr Patch TRANSDERM 1 patch DAILY CARLOS Administration Ondansetron HCl 4 mg 09/28/20 15:31 Ondansetron 4 Mg/2 Ml Vial IVP Q8HR PRN Nausea And Vomiting Pantoprazole Sodium 40 mg 09/28/20 16:15 09/29/20 08:39 Pantoprazole 40 Mg/10 Ml Vial IVP 40 mg DAILY CARLOS Administration Regadenoson 0.4 mg 09/29/20 09:00 Regadenoson 0.4 Mg/5 Ml Syringe IV 09/29/20 13:01 ONCE PRN Per Protocol Temazepam 15 mg 09/28/20 16:13 Temazepam 15 Mg Cap PO HS PRN Insomnia Intake and Output 09/28/20 09/29/20 09/29/20 22:59 06:59 14:59 Intake Total 240 Balance 240 Intake: Oral 240 Other: Voiding Method Toilet Toilet # Voids 1 2 Weight 49.895 kg 09/29/20 06:03 09/29/20 06:03
--- NOTE | 2020-09-29 12:08 | NM ---
EXAMINATION TYPE: NM stress lexiscan cardiolite DATE OF EXAM: 09/29/2020 COMPARISON: NONE HISTORY: Chest pain TECHNIQUE: After the intravenous administration of 10.3 mCi Tc 99m Sestamibi - Cardiolite resting SP ECT images acquired 45 minutes post injection. The patient received 0.4mg Lexiscan, 26.7 mCi Tc 99m Sestamibi - Stress images obtained [address] injection FINDINGS: Review of stress and rest SPECT images demonstrates decreased perfusion involving the anteroapical wa ll which may reflect stress-induced ischemia. Correlate clinically. Gated analysis shows normal wall motion with an estimated left ventricular ejection fraction of 56 %. IMPRESSION: I cannot exclude stress-induced ischemia anteroapical wall.
--- NOTE | 2020-09-29 14:18 | P.STRESS ---
- Stress Test Note Stress Test Results/Findings: Exam Performed: NM stress lexiscan cardiolite Exam Date: 09/29/20 Reason for Exam: Chest Pain Height: 5 ft 6 in Weight: 49.9 kg Protocol: Lexiscan Stage: na Duration of Exercise: na Resting Heart Rate: 60 Resting Blood Pressure: 128/66 Maximum Achieved Heart Rate: 92 Maximum Achieved Blood Pressure: 128/66 85% PMHR: 129 100% PMHR: 152 METS: na Technologist Comment: Stress Test Results/Findings: This is a 70-year-old female with history of hypertension, hypercholesterolemia and smoking admitted to the hospital with chest pain and shortness of breath. EKGs and cardiac enzymes are negative. Stress data: Baseline EKG showed sinus rhythm with diffuse nonspecific ST-T changes. Blood pressure at rest is 126 80 66 with pulse rate of 60. A standard dose of Lexiscan was infused. EKGs taken during and after infusion showed more pronounced ST-T changes in the inferolateral leads, which are nondiagnostic. Patient did not experience any chest pain. Occasional PVCs noted. Final impression #1. Nondiagnostic legs can stress test with baseline EKG changes and nonspecific changes during infusion #2. Report on the nuclear images to be provided by the radiologist
[2020-09-29 14:33] VITALS: BMI 17.7
--- NOTE | 2020-09-29 14:54 | P.DS ---
Providers Date of admission: 09/28/20 15:31 Expected date of discharge: 09/29/20 Attending physician: Jt Guido Consults: 09/28/20 15:31 Consult Physician Routine Consulting Provider: Rahul Gillis Consult Reason/Comments: CP Do you want consulting provider notified?: Yes Primary care physician: Physician Nonstaff Hospital Course: Final diagnosis Chest pain, possible unstable angina Possible gastroesophageal reflux disease History of chronic obstructive pulmonary disease Hypertension Hyperlipidemia History of hypothyroidism History of aneurysm and blood clot in the left lower rib area History of breast surgery History of 4 sections History of nicotine dependence Mild protein calorie malnutrition Full code Discharge disposition Patient is being discharged in a stable condition with guarded prognosis to home. Patient will follow-up with Dr. Kulkarni in the outpatient setting upon discharge. Patient also instructed to follow-up with cardiology in the o utpatient setting. Patient will continue with Protonix 40 mg daily upon discharge. Total time taken is greater than 35 minutes. Hospital course This is a 70-year-old female who was recently admitted with significant abdominal discomfort along with chest tightness and was being closely monitored. Patient was brought to the hospital via EMS and was given nitro sublingual with improvement in chest pain. Patient underwent thoracic aortic computed tomography scan which was negative for any aortic aneurysm or dissection, EKG showed some non-ST changes and troponin was negative. Patient was seen and evaluated by cardiology and underwent stress test with echo. Stress test shows some decreased perfusion involving the anteroapical wall which may reflect stress-induced ischemia with an ejection fraction of 56%. Cardiology evaluated and reviewed the images stating it was most likely artifact. Patient once again instructed to follow-up with cardiology in the outpatient setting. Patient pr ovided resources for primary care provider Dr. Kulkarni in the outpatient setting. Currently no reports of chest pain, shortness of breath, or palpitations. Patient is afebrile. No reports of nausea or vomiting and patient is tolerating diet. Patient does admit to smoking more than a pack of cigarettes a day and will be provided with nicotine patch prescription on discharge. Patient instructed to refrain from any tobacco use or exposure. Patient will be discharged home today. On exam vital signs are stable. Cardio S1, S2 are muffled. Respiratory system shows diminished breath sounds at the bases with no wheezing or rhonchi noted. Abdomen is soft and nontender. Nervous system shows no focal deficits. Please refer to medication reconciliation sheet for a list of medications. Patient Condition at Discharge: Stable Plan - Discharge Summary Discharge Rx Participant: No New Discharge Prescriptions: New Nicotine 14Mg/24Hr Patch [Habitrol] 1 patch TRANSDERM DAILY 30 Days #30 patch HYDROcodone/APAP 5-325MG [[place] 5-325] 1 each PO Q6HR PRN #10 tab PRN Reason: Pain Pantoprazole Sodium [Protonix] 40 mg PO DAILY #30 tablet.dr Acetaminophen Tab [Tylenol] 650 mg PO Q6HR PRN tab PRN Reason: Mild Pain Or Fever > 100.5 Continue Atorvastatin [Lipitor] 20 mg PO DAILY Atenolol [Tenormin] 25 mg PO DAILY Baclofen 30 mg PO HS Levothyroxine Sodium [Synthroid] 50 mcg PO DAILY clonazePAM 2 mg PO BID PRN PRN Reason: ANXIETY/SLEEP Gabapentin [Neurontin] 300 mg PO TID PRN PRN Reason: NERVE PAIN Soy Isofla/Blk Cohosh/Mag Bark [Estroven 155 mg Capsule] 155 mg PO DAILY Albuterol Sulfate [Ventolin HFA] 2 puff INHALATION RT-QID PRN PRN Reason: Shortness Of Breath Discharge Medication List Atenolol [Tenormin] 25 mg PO DAILY 11/06/14 [History] Atorvastatin [Lipitor] 20 mg PO DAILY 11/06/14 [History] Baclofen 30 mg PO HS 11/06/14 [History] Levothyroxine Sodium [Synthroid] 50 mcg PO DAILY 07/05/15 [History] clonazePAM 2 mg PO BID PRN 07/05/15 [History] Albuterol Sulfate [Ventolin HFA] 2 puff INHALATION RT-QID PRN 09/28/20 [History] Gabapentin [Neurontin] 300 mg PO TID PRN 09/28/20 [History] Soy Isofla/Blk Cohosh/Mag Bark [Estroven 155 mg Capsule] 155 mg PO DAILY 09/28/20 [History] Acetaminophen Tab [Tylenol] 650 mg PO Q6HR PRN tab 09/29/20 [Rx] HYDROcodone/APAP 5-325MG [[place] 5-325] 1 each PO Q6HR PRN #10 tab 09/29/20 [Rx] Nicotine 14Mg/24Hr Patch [Habitrol] 1 patch TRANSDERM DAILY 30 Days #30 patch 09/29/20 [Rx] Pantoprazole Sodium [Protonix] 40 mg PO DAILY #30 tablet. 09/29/20 [Rx] Follow up Appointment(s)/Referral(s): Roz Kulkarni MD [REFERRING] - 1-2 Days Rebeka Cueto MD [STAFF PHYSICIAN] - 1 Week Activity/Diet/Wound Care/Special Instructions: Activity Limited until follow-up Follow-up with cardiology in the outpatient setting in 1-[address] Kulkarni within the next week for primary care provider Continue to avoid tobacco use Continue current heart healthy diet Discharge Disposition: HOME SELF-CARE
--- NOTE | 2020-09-29 16:00 | EST ---
Stress Test Results/Findings: Exam Performed: NM stress lexiscan cardiolite Exam Date: 09/29/20 Reason for Exam: Chest Pain Height: 5 ft 6 in Weight: 49.9 kg Protocol: Lexiscan Stage: na Duration of Exercise: na Resting Heart Rate: 60 Resting Blood Pressure: 128/66 Maximum Achieved Heart Rate: 92 Maximum Achieved Blood Pressure: 128/66 85% PMHR: 129 100% PMHR: 152 METS: na Technologist Comment: Stress Test Results/Findings: This is a 70-year-old female with history of hypertension, hypercholesterolemia and smoking admitted to the hospital with chest pain and shortness of breath. EKGs and cardiac enzymes are negative. Stress data: Baseline EKG showed sinus rhythm with diffuse nonspecific ST-T changes. Blood pressure at rest is 126 80 66 with pulse rate of 60. A standard dose of Lexiscan was infused. EKGs taken during and after infusion showed more pronounced ST-T changes in the inferolateral leads, which are nondiagnostic. Patient did not experience any chest pain. Occasional PVCs noted. Final impression #1. Nondiagnostic lexiscan stress test with baseline EKG changes and nonspecific changes during infusion #2. Report on the nuclear images to be provided by the radiologist VALENTINA
[2020-09-30] MEDS ORDERED: PANTOPRAZOLE 40 MG TABLET PO SCH (07:30)
== END 2020-09-29 15:23 | disposition home or self-care (01) ==
LOC: EC 12:32 → 6NMEDSUR 15:31
PROVIDERS: ADMIT Hospitalist; ATTEND Hospitalist
DX: R07.89 Other chest pain (principal); R61 Generalized hyperhidrosis; R11.2 Nausea with vomiting, unspecified; R10.10 Upper abdominal pain, unspecified; J44.9 Chronic obstructive pulmonary disease, unspecified; G89.29 Other chronic pain; E78.5 Hyperlipidemia, unspecified; I10 Essential (primary) hypertension; G62.9 Polyneuropathy, unspecified; F17.210 Nicotine dependence, cigarettes, uncomplicated; E03.9 Hypothyroidism, unspecified; M19.90 Unspecified osteoarthritis, unspecified site; E44.1 Mild protein-calorie malnutrition; F41.9 Anxiety disorder, unspecified; E78.00 Pure hypercholesterolemia, unspecified; Z79.899 Other long term (current) drug therapy; Z79.890 Hormone replacement therapy; Z88.2 Allergy status to sulfonamides; Z86.79 Personal history of other diseases of the circulatory system; Z90.710 Acquired absence of both cervix and uterus; Z82.49 Family history of ischemic heart disease and other diseases of the circulatory system; Z80.1 Family history of malignant neoplasm of trachea, bronchus and lung; Z20.822 Contact with and (suspected) exposure to COVID-19
CPT/HCPCS: 96376; 96375 ×2; 96374; 99285; 36415; 93005; 93017; 93306; 85379; 83880; 80053; 80048; 83605; 83690; 83735; 84484; 85025 ×2; 85610; 85730; 81001; 80306; 87635; 71045; 71275; 74174; 78452; G0378 ×2; A9500; S4990 ×2; J2270; J2405; J2785; C9113 ×2; Q9967

== ENCOUNTER 2020-10-26 08:58 | Day surgery (SDC) | payer OTHER ==
[2020-10-24 12:35] VITALS: BMI 18.6
[~2020-10-26 08:58] MED LIST changes: +ALPRAZolam 0.25 MG TAB PO PRN; +ALPRAZolam 0.5 MG TAB PO PRN; +ASPIRIN 325 MG TAB PO ONE; +ATORVASTATIN 80 MG TAB PO ONE; -LACTATED RINGERS 1,000 ML IV SCH; -LIDOCAINE 1% 20 ML VIAL (10MG/ML) FOR IV START INTRADERMA PRN; +NITROGLYCERIN SL TABS 0.4 MG TAB SUBLINGUAL PRN; +SODIUM CHLORIDE 0.9% 1,000 ML in EMPTY BAG 1 BAG IV ONE
[2020-10-26] MEDS ORDERED: SODIUM CHLORIDE 0.9% 1,000 ML IV ONE (09:13)
[2020-10-26 09:26] VITALS: RESP 16; TEMP 97.4
[2020-10-26] MEDS ORDERED: VERAPAMIL 2.5 MG/ML 2 ML AMP ONE (09:39)
[2020-10-26] MEDS ORDERED: fentaNYL (PF) 50 MCG/ML 2 ML AMP ONE (09:39)
[2020-10-26] MEDS ORDERED: HEPARIN SODIUM 1,000 UN/ML (10ML VL) ONE (09:39)
[2020-10-26] MEDS ORDERED: LIDOCAINE 1% INJ 10MG/ML (20 ML MDV) ONE (09:39)
[2020-10-26] MEDS ORDERED: MIDAZOLAM 2 MG/2 ML VIAL IV ONE ×2 (09:46)
[2020-10-26] MEDS ORDERED: LIDOCAINE 1% INJ 10MG/ML (20 ML MDV) SQ ONE (09:46)
[2020-10-26] MEDS ORDERED: fentaNYL (PF) 50 MCG/ML 2 ML AMP IV ONE (09:47)
[2020-10-26] MEDS: VERAPAMIL SYRINGE (5 MG/10 ML) INTRAARTER ONE ×2 (09:50→10:01)
[2020-10-26] MEDS ORDERED: HEPARIN SODIUM 1,000 UN/ML (10ML VL) IV ONE (09:51)
[2020-10-26] MEDS ORDERED: IOPAMIDOL-370 125ML BTL INJ ONE (10:01)
[2020-10-26] MEDS ORDERED: RX INFO: IV CONTRAST WAS GIVEN 1 EACH MISC MISCELLANE PRN (10:08)
[2020-10-26] MEDS ORDERED: SODIUM CHLORIDE 0.9% 1,000 ML IV SCH (10:15)
--- NOTE | 2020-10-26 10:46 | P.CARDCATH ---
Date of Procedure: 10/26/20 Preoperative Diagnosis: Positive stress test and chest pain Postoperative Diagnosis: Normal coronary arteries Procedure(s) Performed: Left heart catheterization without left ventriculography Description of Procedure: HISTORY: This is a 70-year-old female with who was admitted recently to the hospital with chest pains with negative enzymes. Stress correlation study showed possible ischemia of the anteroapical wall. Patient was given the option of having a dobutamine echo versus cardiac catheterization for definitive diagnosis. Patient preferred to have a cardiac catheterization. CONSENT:I have discussed the risks, benefits and alternative therapies for the above-mentioned procedure and for both sedation/analgesia as well as necessary blood product administration, if indicated, as they pertain to this patient. The patient has indicated understanding and acceptance of the risks and procedures discussed. PROCEDURE: Patient was brought to the lab in a fasting state. Patient was given some IV sedation. The right wrist is infiltrated with lidocaine and right radial artery was entered using Seldinger technique. A 6-Albanian catheter was left in place and selective coronary arteriography was performed. Patient tolerated the procedure well. TR band was applied for hemostasis. No immediate complications were noted and patient was transferred to [facility] in a stable condition Conscious Sedation: Versed 1mg Fentanyl 25 g Duration 15minutes HEMODYNAMICS: The aortic pressure is about 110/70. The left ventricular end- diastolic pressure is about 4-8 no gradient across the aortic valve SELECTIVE CORONARY ARTERIOGRAPHY: LEFT MAIN: Normal length and free of occlusive disease THE LEFT ANTERIOR DESCENDING CORONARY ARTERY: . Moderate caliber vessel wrapping around the apex. Free of any occlusive disease THE LEFT CIRCUMFLEX AND IS CORONARY ARTERY: . Moderate caliber vessel free of occlusive disease THE RIGHT CORONARY ARTERY: . Dominant vessel vessel giving rise to PDA and PLV. Free of occlusive disease LEFT VENTRICULOGRAPHY: Not performed FINAL IMPRESSION: . Normal coronary arteries. Normal left ventricle end- diastolic pressure PLAN: . Continue risk factor modification and maximum medical therapy PROGNOSIS: Good
[2020-10-26] MEDS ORDERED: ACETAMINOPHEN TAB 325 MG TAB ONE (13:54)
[2020-10-26 14:38] VITALS: BP 126/63; PULSE 58
== END 2020-10-26 15:01 | disposition home or self-care (01) ==
LOC: CATHCVL 08:58
PROVIDERS: ATTEND Internal Medicine Cardiovascular Disease
DX: R07.9 Chest pain, unspecified (principal); R94.39 Abnormal result of other cardiovascular function study; I10 Essential (primary) hypertension; E78.5 Hyperlipidemia, unspecified; Z88.0 Allergy status to penicillin; E78.00 Pure hypercholesterolemia, unspecified; F17.210 Nicotine dependence, cigarettes, uncomplicated; Z82.49 Family history of ischemic heart disease and other diseases of the circulatory system; Z79.890 Hormone replacement therapy; Z79.899 Other long term (current) drug therapy
CPT/HCPCS: 93458; C1769; C1894; J2250; J2001; J3010; J1644; Q9967

== ENCOUNTER → 2021-06-07 | Outpatient (CLI) | payer OTHER ==
--- NOTE | 2021-06-07 08:50 | CT ---
EXAMINATION TYPE: CT lumbar spine wo con DATE OF EXAM: 06/07/2021 COMPARISON: 05/19/2015 HISTORY: Low back pain CT DLP: 451.20 mGycm CONTRAST: None TECHNIQUE: CT of the lumbar spine is performed on a spiral scan at 3 mm thick sections. Reconstructed images are performed in the coronal and sagittal planes. FINDINGS: T12-L1: No focal disc herniation or significant disc bulge is evident. No spinal canal stenosis or neural foraminal stenosis is present. L1-L2: Minimal disc bulge is present with anterior thecal sac contact. There is narrowing of the disc height. No spinal canal stenosis or neural foraminal stenosis is present. L2-L3: Minimal disc bulges into thecal sac contact. No spinal canal stenosis or neural foraminal sten osis is present. L3-L4: There is mild disc bulging with mild anterior thecal sac flattening. No AP spinal canal stenos is or neural foraminal stenosis is present. L4-L5: Mild disc bulges into the thecal sac contact. No AP spinal canal stenosis present. Some mild f acet hypertrophy is present. Neural foramen are patent. L5-S1: There is loss of disc height at this level. There is some limitation on evaluation of spinal c anal due to beam hardening artifact from L5-S1 screws. No spinal canal stenosis is evident Vertebral alignment appears normal. Note is made of a few nonobstructing punctate renal stones present bilaterally. Vascular calcificatio ns within the aorta sacroiliac joint vacuum is present IMPRESSION: Postsurgical changes L5-S1. 2. Loss of disc at L5-S1 with some narrowing of the L1-2 disc height. 3. Mild disc bulging L2-3 through L4-5 with minimal to mild anterior thecal sac flattening. No stenos is is evident.
== END | disposition home or self-care (01) ==
LOC: RADCTMAIN 06:49
PROVIDERS: ATTEND Psychiatry & Neurology Neurology
DX: M51.36 Other intervertebral disc degeneration, lumbar region (principal); M51.26 Other intervertebral disc displacement, lumbar region
CPT/HCPCS: 72131

== ENCOUNTER → 2022-05-06 | Outpatient (CLI) | payer OTHER | END | disposition home or self-care (01) | LOC: LABWHC1 11:30 | PROVIDERS: ATTEND Psychiatry & Neurology Neurology | DX: Z01.818 Encounter for other preprocedural examination (principal) | CPT/HCPCS: 36415; 93005 ==

== ENCOUNTER → 2022-05-20 | Outpatient (CLI) | payer OTHER | END | disposition home or self-care (01) | LOC: LABWHC1 10:46 | PROVIDERS: ATTEND Psychiatry & Neurology Neurology | DX: Z01.812 Encounter for preprocedural laboratory examination (principal); Z20.822 Contact with and (suspected) exposure to COVID-19 | CPT/HCPCS: U0003; C9803; U0005 ==

== ENCOUNTER → 2022-08-14 | Outpatient (CLI) | payer OTHER ==
--- NOTE | 2022-08-14 13:17 | CT ---
EXAMINATION TYPE: CT lumbar spine wo con DATE OF EXAM: 08/14/2022 1:07 PM COMPARISON: 06/07/2021 HISTORY: Low back pain Automated exposure control for dose reduction was used. Unenhanced CT of the lumbar spine was performed. Bone and soft tissue window settings are submitted as well as coronal and sagittal reconstructions. L1-L2: Moderate degenerative disc space narrowing. Mild posterior disc bulge with minimal effacement of the ventral thecal sac. No evidence for disc herniation or stenosis. Foramina are patent. L2-L3: Mild loss of disc space height. Posterior disc bulge is mild effacement ventral thecal sac. No evidence for central stenosis or disc herniation. Foramina are patent bilaterally. L3-L4: Mild loss of disc space height. There is posterior disc bulge greatest posterior centrally and to the left where there appears to be mild left lateral recess stenosis and foraminal encroachment. No evidence for central stenosis. L4-L5: Mild degenerative disc space narrowing. No disc herniation protrusion or central stenosis. No facet joint arthropathy. No evidence for foraminal encroachment. L5-S1: Postoperative changes of decompressive laminectomy with the pedicular screws and intervertebra l body spacer remain unchanged. There is mild posterior hypertrophic change without evidence for recu rrent or residual disease. No evidence for stenosis or foraminal encroachment. Alignment is stable. 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 Multiple bilateral renal cystic lesions noted . IMPRESSION: 1. Multilevel degenerative disc disease with disc bulging as outlined above. 2. Stable postoperative changes of fusion at L5-S1.
== END | disposition home or self-care (01) ==
LOC: RADCTMAIN 12:40
PROVIDERS: ATTEND Psychiatry & Neurology Neurology
DX: M51.36 Other intervertebral disc degeneration, lumbar region (principal); M51.26 Other intervertebral disc displacement, lumbar region; M43.26 Fusion of spine, lumbar region
CPT/HCPCS: 72131

== ENCOUNTER 2023-08-06 12:30 | Observation (INO) | payer MEDICARE, OTHER ==
[2023-08-06] MEDS ORDERED: HYDROmorphone 0.5 MG/0.5 ML SYRINGE IVP STA ×2 (12:41→16:56)
--- NOTE | 2023-08-06 12:46 | ED ---
General Adult HPI - General Chief complaint: Neuro Symptoms/Deficit Stated complaint: vision loss Time Seen by Provider: 08/06/23 12:35 Source: patient, RN notes reviewed, old records reviewed Mode of arrival: EMS Limitations: no limitations - History of Present Illness Initial comments: This is a 72-year-old female who presents emergency Department with a past medical history significant for hypertension smoking and an abdominal aortic aneurysm. Patient comes in today stating that the last 2 weeks she's been having some visual disturbance in both eyes. Patient is sure that it's in both eyes. Patient states it feels like a lacy film comes over the eye and then progresses and comes back and occasionally she gets flashing bright lights in both eyes. Patient states is constant every day all day long for 2 weeks. Patient states she was having occur when she was in the car when she felt like she was given a passout and then she started having a severe headache and she's unsure if she passed out or not but there are times since she was in the car that she does not remember so she thinks she might have passed out. Patient does not know who called EMS. Patient continues to have a headache. Patient denies any speech problems patient denies any numbness or weakness per patient denies chest pain difficulty breathing first breath per patient as any fever chills. Patient denies any blood thinners. Patient denies any recent injury or trauma. - Related Data Home Medications Medication Instructions Recorded Confirmed Atenolol [Tenormin] 25 mg PO DAILY 11/06/14 10/26/20 Atorvastatin [Lipitor] 20 mg PO DAILY 11/06/14 10/26/20 Baclofen 30 mg PO HS 11/06/14 10/26/20 Levothyroxine Sodium [Synthroid] 50 mcg PO DAILY 07/05/15 10/26/20 clonazePAM 2 mg PO DAILY PRN 07/05/15 10/26/20 Gabapentin [Neurontin] 300 mg PO TID PRN 09/28/20 10/26/20 Allergies Allergy/AdvReac Type Severity Reaction Status Date / Time amoxicillin Allergy Swelling Verified 08/06/23 15:09 all over Penicillins Allergy Swelling Verified 08/06/23 15:09 all over Review of Systems ROS Statement: Those systems with pertinent positive or pertinent negative responses have been documented in the HPI. ROS Other: All systems not noted in ROS Statement are negative. Past Medical History Past Medical History: Cancer, COPD, Hyperlipidemia, Hypertension, Thyroid Diso rder Additional Past Medical History / Comment(s): neuropathy, aneursym skin cancer buttocks and lip History of Any Multi-Drug Resistant Organisms: None Reported Past Surgical History: Back Surgery, Breast Surgery, Section, Hysterectomy Additional Past Surgical History / Comment(s): 3 lower back surgeries- has implants and thuy, bilateral breast cystectomies, 4 C-Sections, surgery to rt l zac to repair holes in lungs "stented and coiled", bilat cataract, skincancer removed from buttocks, nerverblock implant buttocks Past Anesthesia/Blood Transfusion Reactions: No Reported Reaction Additional Past Anesthesia/Blood Transfusion Reaction / Comment(s): Pt has never recieved blood. Past Psychological History: No Psychological Hx Reported Smoking Status: Current every day smoker - Past Family History Brother(s) Family Medical History: Cancer Sister(s) Family Medical History: Cancer Father Family Medical History: Myocardial Infarction ([place]) Additional Family Medical History / Comment(s): Father at age 52 yrs of a [place]. Mother Family Medical History: Cancer, Coronary Artery Disease (CAD), Hyperlipidemia Additional Family Medical History / Comment(s): Mother at age 72 yrs of oswaldo ng cancer. General Exam - General Exam Comments Initial Comments: GENERAL: Patient is well-developed and well-nourished. Patient is nontoxic and well- hydrated and is in no acute distress. ENT: Neck is soft and supple. No significant lymphadenopathy is noted. Oropharynx is clear. Moist mucous membranes. Neck has full range of motion without eliciting any pain. EYES: The sclera were anicteric and conjunctiva were pink and moist. Extraocular movements were intact and pupils were equal round and reactive to light. Eyeli ds were unremarkable. PULMONARY: Unlabored respirations. Good breath sounds bilaterally. No audible rales rhonchi or wheezing was noted. CARDIOVASCULAR: There is a regular rate and rhythm without any murmurs gallops or rubs. ABDOMEN: Soft and nontender with normal bowel sounds. No palpable organomegaly was noted. There is no palpable pulsatile mass. SKIN: Skin is clear with no lesions or rashes and otherwise unremarkable. NEUROLOGIC: Patient is alert and oriented x3. Cranial nerves II through XII are grossly intact. Motor and sensory are also intact. Normal speech, volume and content. Symmetrical smile. Currently her NIH is 0 MUSCULOSKELETAL: Normal extremities with adequate strength and full range of motion. No lower extremity swelling or edema. No calf tenderness. LYMPHATICS: No significant lymphadenopathy is noted PSYCHIATRIC: Normal psychiatric evaluation. Limitations: no limitations Course Vital Signs 08/06/23 08/06/23 08/06/23 12:33 13:07 13:54 Temperature 97.2 F L Pulse Rate 60 57 L Respiratory 16 18 18 Rate Blood Pressure 165/110 153/81 Blood Pressure 186/97 [Left Arm] Blood Pressure 175/85 [Right Arm] O2 Sat by Pulse 96 95 Oximetry 08/06/23 14:43 Temperature Pulse Rate 51 L Respiratory 18 Rate Blood Pressure Blood Pressure [Left Arm] Blood Pressure [Right Arm] O2 Sat by Pulse 97 Oximetry Medical Decision Making - Medical Decision Making EKG as interpreted by myself. EKG shows a sinus rhythm at 61 bpm AL interval 143 QRSs 110 QT interval is 428 QTC is 431 per patient's EKG shows no ST segment elevation or depression Was pt. sent in by a medical professional or institution (, PA, SCENARIO WRITER, urgent care, hospital, or long-term...) When possible be specific @ -No Did you speak to anyone other than the patient for history (EMS, parent, family, police, friend...)? What history was obtained from this source @ -No Did you review nursing and triage notes (agree or disagree)? Why? @ -I reviewed and agree with nursing and triage notes Were old charts reviewed (outside hosp., previous admission, EMS record, old EKG, old radiological studies, urgent care reports/EKG's, long-term records)? Report findings @ -I reviewed prior charts from prior lab work Differential Diagnosis (chest pain, altered mental status, abdominal pain women, abdominal pain men, vaginal bleeding, weakness, fever, dyspnea, syncope, headache, dizziness, GI bleed, back pain, seizure, CVA, palpatations, mental health, musculoskeletal)? @ -Differential Syncope: Valvular disease, hypertrophic cardiomyopathy, pulmonary embolism, tamponade, tachycardia, bradycardia, [place], hypovolemia, hemorrhage, dissection, anemia, intracranial hemorrhage, seizure, hypoglycemia, carbon monoxide poisoning, this is not meant to be an all-inclusive list.Differential Headache: Migraine, tension, cluster, carbon monoxide, central venous thrombosis, pension karma temporal arteritis, acute closure glaucoma, intercranial hemorrhage, mastoiditis, sinusitis, head injury, this is not meant to be an all-inclusive list. EKG interpreted by me (3pts min.). @ -As above X-rays interpreted by me (1pt min.). @ -Chest x-ray shows no acute abnormality CT interpreted by me (1pt min.). @ -CT brain shows no acute abnormality. CT angiogram of the head and neck shows acute abnormality U/S interpreted by me (1pt. min.). @ -None done What testing was considered but not performed or refused? (CT, X-rays, U/S, labs)? Why? @ -None What meds were considered but not given or refused? Why? @ -None Did you discuss the management of the patient with other professionals (professionals i.e. , PA, SCENARIO WRITER, lab, RT, psych nurse, social sciences chair, academic program specialist, teacher, desk officer, bilingual patient support caseworker)? Give summary @ -I spoke with Dr. Shin and he agreed to admit the patient admitted the patient wrote admitting orders. I spoke with Dr. Hernandez he agreed to see the patient. Was smoking cessation discussed for >3mins. @ -No Was critical care preformed (if so, how long)? @ -No Were there social determinants of health that impacted care today? How? (Homel essness, low income, unemployed, alcoholism, drug addiction, transportation, low edu. Level, literacy, decrease access to med. care, detention, rehab)? @ -No Was there de-escalation of care discussed even if they declined (Discuss DNR or withdrawal of care, Hospice)? DNR status @ -No What co-morbidities impacted this encounter? (DM, HTN, Smoking, COPD, CAD, Cancer, CVA, ARF, Chemo, Hep., AIDS, mental health diagnosis, sleep apnea, morbid obesity)? @ -None Was patient admitted / discharged? Hospital course, mention meds given and route, prescriptions, significant lab abnormalities, going to OR and other pertinent info. @ -Patient had elevated blood pressure when she arrived however it came down on its own after some pain medication. Patient's headache remained much improved from earlier. Patient's CT scans were all negative. Patient continued to have a visual disturbance that she described initially in both eyes. I spoke with Dr. Shin he agreed to admit the patient. I spoke with Dr. Hernandez and he agreed to see the patient Undiagnosed new problem with uncertain prognosis? @ -No Drug Therapy requiring intensive monitoring for toxicity (Heparin, Nitro, Insulin, Cardizem)? @ -No Were any procedures done? @ -No Diagnosis/symptom? @ -Visual disturbance Acute, or Chronic, or Acute on Chronic? @ -Acute Uncomplicated (without systemic symptoms) or Complicated (systemic symptoms)? @ -Complicated Side effects of treatment? @ -No Exacerbation, Progression, or Severe Exacerbation? @ -No Poses a threat to life or bodily function? How? (Chest pain, [place], [place], pneumonia, PE, COPD, DKA, ARF, appy, cholecystitis, CVA, Diverticulitis, Homicidal, Suicidal, threat to staff... and all critical care pts) @ -No Diagnosis/symptom? @ -Headache Acute, or Chronic, or Acute on Chronic? @ -Acute Uncomplicated (without systemic symptoms) or Complicated (systemic symptoms)? @ -Complicated Side effects of treatment? @ -none Exacerbation, Progression, or Severe Exacerbation] @ -no Poses a threat to life or bodily function? @ -no - Lab Data Result diagrams: 08/06/23 12:55 08/06/23 12:55 Lab Results 08/06/23 08/06/23 08/06/23 Range/Units 12:55 12:55 12:55 WBC 6.7 (3.8-10.6) k/uL RBC 5.06 (3.80-5.40) m/uL Hgb 15.4 (11.4-16.0) gm/dL Hct 47.3 H (34.0-46.0) % MCV 93.4 (80.0-100.0) fL MCH 30.5 (25.0-35.0) pg MCHC 32.6 (31.0-37.0) g/dL RDW 13.2 (11.5-15.5) % Plt Count 142 L (150-450) k/uL MPV 7.3 Neutrophils % 57 % Lymphocytes % 34 % Monocytes % 5 % Eosinophils % 2 % Basophils % 1 % Neutrophils # 3.9 (1.3-7.7) k/uL Lymphocytes # 2.3 (1.0-4.8) k/uL Monocytes # 0.3 (0-1.0) k/uL Eosinophils # 0.1 (0-0.7) k/uL Basophils # 0.0 (0-0.2) k/uL PT 10.6 (10.0-12.5) sec INR 1.0 (<1.2) APTT 25.4 (22.0-30.0) sec Sodium 139 (137-145) mmol/L Potassium 4.4 (3.5-5.1) mmol/L Chloride 106 (98-107) mmol/L Carbon Dioxide 24 (22-30) mmol/L Anion Gap 9 mmol/L BUN 18 H (7-17) mg/dL Creatinine 0.51 L (0.52-1.04) mg/dL Est GFR (CKD-EPI)AfAm >90 (>60 ml/min/1.73 sqM) Est GFR (CKD-EPI)NonAf >90 (>60 ml/min/1.73 sqM) Glucose 102 H (74-99) mg/dL Calcium 9.8 (8.4-10.2) mg/dL Total Bilirubin 0.4 (0.2-1.3) mg/dL AST 24 (14-36) U/L ALT 16 (4-34) U/L Alkaline Phosphatase 119 (38-126) U/L Creatine Kinase 72 (30-135) U/L Troponin I (0.000-0.034) ng/mL NT-Pro-B Natriuret Pep pg/mL Total Protein 6.8 (6.3-8.2) g/dL Albumin 4.3 (3.5-5.0) g/dL 08/06/23 08/06/23 Range/Units 12:55 12:55 WBC (3.8-10.6) k/uL RBC (3.80-5.40) m/uL Hgb (11.4-16.0) gm/dL Hct (34.0-46.0) % MCV (80.0-100.0) fL MCH (25.0-35.0) pg MCHC (31.0-37.0) g/dL RDW (11.5-15.5) % Plt Count (150-450) k/uL MPV Neutrophils % % Lymphocytes % % Monocytes % % Eosinophils % % Basophils % % Neutrophils # (1.3-7.7) k/uL Lymphocytes # (1.0-4.8) k/uL Monocytes # (0-1.0) k/uL Eosinophils # (0-0.7) k/uL Basophils # (0-0.2) k/uL PT (10.0-12.5) sec INR (<1.2) APTT (22.0-30.0) sec Sodium (137-145) mmol/L Potassium (3.5-5.1) mmol/L Chloride (98-107) mmol/L Carbon Dioxide (22-30) mmol/L Anion Gap mmol/L BUN (7-17) mg/dL Creatinine (0.52-1.04) mg/dL Est GFR (CKD-EPI)AfAm (>60 ml/min/1.73 sqM) Est GFR (CKD-EPI)NonAf (>60 ml/min/1.73 sqM) Glucose (74-99) mg/dL Calcium (8.4-10.2) mg/dL Total Bilirubin (0.2-1.3) mg/dL AST (14-36) U/L ALT (4-34) U/L Alkaline Phosphatase (38-126) U/L Creatine Kinase (30-135) U/L Troponin I <0.012 (0.000-0.034) ng/mL NT-Pro-B Natriuret Pep 287 pg/mL Total Protein (6.3-8.2) g/dL Albumin (3.5-5.0) g/dL Disposition Clinical Impression: Visual disturbance, Headache, Hypertensive urgency Disposition: ADMITTED IP TO THIS HOSP Referrals: Zachary Mina DO [Primary Care Provider] - 1-2 days Time of Disposition: 15:21
[2023-08-06 13:11] LABS: Basophils % (A) 1 %; Eosinophils # (A) 0.1 k/uL (0-0.7); Eosinophils % (A) 2 %; HCT 47.3 % (34.0-46.0); HGB 15.4 gm/dL (11.4-16.0); Lymphocytes # (A) 2.3 k/uL (1.0-4.8); Lymphocytes % (A) 34 %; MCH 30.5 pg (25.0-35.0); MCHC 32.6 g/dL (31.0-37.0); MCV 93.4 fL (80.0-100.0); Mean Platelet Volume 7.3; Monocytes # (A) 0.3 k/uL (0-1.0); Monocytes % (A) 5 %; Neutrophils # (A) 3.9 k/uL (1.3-7.7); Neutrophils % (A) 57 %; Platelet Count 142 k/uL (150-450); RBC 5.06 m/uL (3.80-5.40); RDW 13.2 % (11.5-15.5); WBC 6.7 k/uL (3.8-10.6)
--- NOTE | 2023-08-06 13:20 | XR ---
EXAMINATION TYPE: XR chest 2V DATE OF EXAM: 08/06/2023 COMPARISON: 09/28/2020 HISTORY: Shortness of breath TECHNIQUE: Frontal and lateral views of the chest are obtained. FINDINGS: Scattered senescent parenchymal changes noted. Hyperinflation compatible with COPD. No evidence for infiltrate. No evidence for atelectasis. Pulmonary venous congestion with mild inters titial edema and developing opacity right lower lobe. Heart size is stable. Mediastinal structures are stable and grossly unremarkable. No evidence for hilar prominence. Degenerative changes dorsal spine. IMPRESSION: 1. Pulmonary venous congestion with mild interstitial edema and developing opacity right lower lobe.
[2023-08-06 13:27] LABS: Partial Thromboplastin Time 25.4 sec (22.0-30.0); Prothrombin Time 10.6 sec (10.0-12.5)
[2023-08-06 13:30] LABS: ALT 16 U/L (4-34); AST 24 U/L (14-36); African American GFR (CKD) >90 (>60 ml/min/1.73 sqM); Albumin 4.3 g/dL (3.5-5.0); Alkaline Phosphatase 119 U/L (38-126); Anion Gap 9 mmol/L; Blood Urea Nitrogen 18 mg/dL (7-17); Calcium 9.8 mg/dL (8.4-10.2); Carbon Dioxide 24 mmol/L (22-30); Chloride 106 mmol/L (98-107); Creatine Kinase 72 U/L (30-135); Glucose 102 mg/dL (74-99); Non-African American GFR(CKD) >90 (>60 ml/min/1.73 sqM); Potassium 4.4 mmol/L (3.5-5.1); Sodium 139 mmol/L (137-145); Total Bilirubin 0.4 mg/dL (0.2-1.3); Total Protein 6.8 g/dL (6.3-8.2)
--- NOTE | 2023-08-06 13:43 | CT ---
EXAMINATION TYPE: CT brain wo con DATE OF EXAM: 08/06/2023 COMPARISON: None HISTORY: Neuro deficit, acute, stroke suspected Unenhanced CT of the brain was performed. The ventricles, basal cisterns and sulci overlying the cerebral convexities demonstrate mild enlargem ent. There is no evidence for intracranial hemorrhage or sulcal effacement. There is decreased attenuation about the periventricular white matter and deep white matter of both c erebral hemispheres, compatible with chronic small vessel ischemia. Differential diagnosis does inclu de demyelination. No mass effects are seen.No midline shift. Osseous calvarium is intact. If symptoms persist consider MRI. IMPRESSION: 1. Age related atrophic and chronic small vessel ischemic change without acute intracranial process s een at this time.
--- NOTE | 2023-08-06 13:46 | CT ---
EXAMINATION TYPE: CT angio head neck DATE OF EXAM: 08/06/2023 COMPARISON: None HISTORY: Neuro deficit, acute, stroke suspected CONTRAST: Performed with IV Contrast, patient injected with 65 mL mL of Isovue 370. Combination Contrast CTA cervical carotids and [place] of [place] CTA cervical carotids with 3-D recons truction Contrast CTA of the cervical carotids was performed 3-D reconstruction imaging obtained at a separate workstation. Right carotid system: Mild plaque is seen of the right common carotid artery. There is mild plaque a lso noted at the carotid bulb and proximal ICA. No significant diameter reduction. ECA is patent. Right vertebral artery appears unremarkable. Left carotid system: Mild plaque is seen of the left common carotid artery. There is mild plaque als o noted at the carotid bulb and proximal ICA. No significant diameter reduction. ECA is patent. Lef t vertebral artery appears unremarkable. Nodular density right upper lobe measuring 1.7 cm requires a follow-up study in 2-3 months. At least moderate centrilobular emphysema. IMPRESSION: 1. No significant diameter reduction to account for the patient's symptoms. 2. Nodular density right upper lobe measuring 1.7 cm requires a follow-up study in 2-3 months. CTA white [place] of [place] with 3-D reconstruction Contrast CTA of the white [place] of [place] was performed 3-D reconstruction imaging obtained at a separate workstation. Vertebrobasilar system as well as intracranial portions of the internal carotid arteries and their ma reg tributaries are patent. I do not see evidence for sizable aneurysm or vascular malformation. Pl ease note MRI provides greater sensitivity and specificity. Visualized brain appears grossly unremar kable. IMPRESSION: 1. No significant abnormality. NASCET criteria was used in interpretation of this exam?
[2023-08-06] MEDS ORDERED: ASPIRIN 325 MG TAB PO STA (15:22)
[2023-08-06] MEDS: CLOPIDOGREL 75 MG TAB PO SCH (20:05)
[2023-08-06 20:18] LABS: C Reactive Protein <0.5 mg/dL (<1.0)
[2023-08-06] MEDS ORDERED: clonazePAM 1 MG TAB PO SCH (21:45)
[2023-08-06] MEDS ORDERED: BACLOFEN 10 MG TAB PO SCH (21:45)
[2023-08-06] MEDS: HYDROcodone/APAP 5-325MG 1 EACH TAB PO PRN (22:59)
[2023-08-07] MEDS: HYDROcodone/APAP 5-325MG 1 EACH TAB PO PRN (04:19)
[2023-08-07] MEDS ORDERED: LEVOTHYROXINE 50 MCG TAB PO SCH (06:30)
[2023-08-07] MEDS: CLOPIDOGREL 75 MG TAB PO SCH (08:36)
[2023-08-07] MEDS ORDERED: ASPIRIN 325 MG TAB PO SCH (09:00)
[2023-08-07 09:16] LABS: Chol/HDL Ratio 2.99 Ratio; LDL Cholesterol,Calculated 82.3 mg/dL (0.0-131.0)
--- NOTE | 2023-08-07 10:44 | P.CNNES ---
History of Present Illness Consult date: 08/06/23 Requesting physician: Lio Shin Reason for Consult: Blurred vision, syncope History of Present Illness: Patient is a 72-year-old right-handed female who came to the hospital by ambulance today at 12:30 PM for possible syncope, dizziness. Patient states that she was driving to [place] earlier this morning, when at around 11:30 AM, she became dizzy, she pulled over and stopped at the side of the road and called her that [place] [address] and [address] drive. Then she does not remember as she passed out and the next she remembers is people banging on the window to gain her attention. She blacked out for uncertain period of time. Since then she has been having very intense headache all around, as she does not get headache routinely. Denies any focal symptoms except visual symptoms as mentioned below. Patient states that for the last 2-3 weeks, she has been noticing "laser lightning bolts" in her vision which lasts only for a very brief moment involving both eyes, switch on and off in one or the other eye, although much more on the left as compared to right. It comes and goes, on and off through the day. She is also having some another visual symptoms in the last 1-1/2 to 2 weeks, in which she gets a black string, that comes to her eyes like a "bunch of pieces of hair" but moves and it swings back and forth lasting for about half an hour to 45 minutes. This is also having lots of times a day. Today she has been having a bad headache which she "can't stand". Patient states that she has been slight dizziness off and on, couple times since she has been in the hospital. Patient states that she does not see too clearly all the time since she had undergone cataract surgery 3 years ago. Denies any worsening of her visual disturbance. As per EMS flow sheet, it was reported that when they arrived, patient was driving into the [place] area from [place] when patient began to experience what she described as "lightning bolts in her line of vision", as was followed by what patient describes as "very being placed over my eyes, like looking through a heavy lace". Patient mentioned that these visual changes, with eye pain that is 9/10. Patient also mentions that these changes were followed by a headache which is 10/10 on the pain scale. Patient pulled over to the side of the road where she believes that she passed out as she remembers things going black. When fire department came, found patient able to answer questions with some slowness and without detail. Patient denied nausea. Patient described her head pain as pressure at the L3-L4 ground and moves to what the forehead where it tends to pound. Patient was light sensitive. Patient's blood pressure was 157/88, pulse is 64 respirations 16, saturation 97%. EKG shows sinus rhythm. Chest x-ray showed pulmonary venous congestion with mild interstitial edema and developing capacity right lower lobe. CT head revealed age-related atrophic and chronic small vessel ischemic changes without acute intracranial process. I personally reviewed CT head, agree with the findings. Vital signs arrival blood pressure 165/110, which improved to 153/81, pulse rate 60 and temperature 97.2. Blood test shows normal CBC, PT/PTT, CMP. Patient has smoked 1-1/2 pack per day since age 14. She drinks wine cooler very occasionally. Denies any marijuana use. She has hypertension, hyperlipidemia but denies diabetes. Also has COPD, emphysema and thyroid problem. Patient also has history of peripheral neuropathy in the legs and also has presence of spinal cord stimulator. She has chronic back pain, had undergone back surgery with bolts and screen and plates. Patient does not take any antiplatelet medication at home. She stopped taking aspirin about 1-2 years ago because she used to bleed easily. Review of Systems Constitutional: Reports chills, Reports weight gain, Denies fever Eyes: left tunnel vision/blind spots, bilateral as per HPI, bilateral blurred vision, bilateral dry eye Ears: deny: decreased hearing, ear discharge Ears, nose, mouth and throat: Reports headache (Today), Reports vertigo, Denies sore throat Cardiovascular: Denies chest pain, Denies shortness of breath Respiratory: Reports cough with sputum, Reports wheezing Gastrointestinal: Denies abdominal pain, Denies diarrhea, Denies nausea, Denies vomiting Genitourinary: Denies dysuria, Denies hematuria, Denies urgency, Denies urinary frequency Musculoskeletal: Reports low back pain, Denies myalgias, Denies neck pain Integumentary: Denies pruritus, Denies rash Neurological: Reports as per HPI Psychiatric: Denies anxiety, Denies depression Endocrine: Reports fatigue, Reports weight change Hematologic/Lymphatic: Reports easy bleeding, Reports easy bruising Past Medical History Past Medical History: Cancer, COPD, Hyperlipidemia, Hypertension, Thyroid Disorder Additional Past Medical History / Comment(s): neuropathy, aneursym skin cancer buttocks and lip History of Any Multi-Drug Resistant Organisms: None Reported Past Surgical History: Back Surgery, Breast Surgery, Section, Hysterectomy Additional Past Surgical History / Comment(s): 3 lower back surgeries- has implants and thuy, bilateral breast cystectomies, 4 C-Sections, surgery to rt lung to repair holes in lungs "stented and coiled", bilat cataract, skincancer removed from buttocks, nerverblock implant buttocks Past Anesthesia/Blood Transfusion Reactions: No Reported Reaction Additional Past Anesthesia/Blood Transfusion Reaction / Comment(s): Pt has never recieved blood. Past Psychological History: No Psychological Hx Reported Smoking Status: Current every day smoker - Past Family History Brother(s) Family Medical History: Cancer Sister(s) Family Medical History: Cancer Father Family Medical History: Myocardial Infarction ([place]) Additional Family Medical History / Comment(s): Father at age 52 yrs of a [place]. Mother Family Medical History: Cancer, Coronary Artery Disease (CAD), Hyperlipidemia Additional Family Medical History / Comment(s): Mother at age 72 yrs of lung cancer. Medications and Allergies Home Medications Medication Instructions Recorded Confirmed Type Atenolol [Tenormin] 25 mg PO DAILY 11/06/14 08/06/23 History Atorvastatin [Lipitor] 20 mg PO DAILY 11/06/14 08/06/23 History Baclofen 30 mg PO HS 11/06/14 08/06/23 History Levothyroxine Sodium [Synthroid] 50 mcg PO DAILY 07/05/15 08/06/23 History clonazePAM 2 mg PO HS 07/05/15 08/06/23 History Albuterol Sulfate [Ventolin HFA] 2 puff INHALATION RT-QID PRN 08/06/23 08/06/23 History Pregabalin [Lyrica] 75 mg PO DIRECTED 08/06/23 08/06/23 History cycloSPORINE 0.05% OPHTH SOLN 1 drop BOTH EYES Q12H 08/06/23 08/06/23 History [Restasis] Allergies Allergy/AdvReac Type Severity Reaction Status Date / Time amoxicillin Allergy Swelling Verified 12/13/23 15:09 all over Penicillins Allergy Swelling Verified 08/06/23 15:09 all over Physical Examination - Vital Signs Vital Signs: Vital Signs Temp Pulse Resp BP BP BP Pulse Ox 08/06/23 18:00 52 L 18 125/72 96 08/06/23 14:43 51 L 18 97 08/06/23 13:54 57 L 18 153/81 95 08/06/23 13:07 18 186/97 175/85 08/06/23 12:33 97.2 F L 60 16 165/110 96 Intake and Output 08/06/23 08/06/23 08/06/23 06:59 14:59 22:59 Other: Weight 53.524 kg Patient is an elderly female, very pleasant, in no acute distress. Patient is alert awake oriented to time place and person. Speech and language functions are normal. Patient can name and repeat very well. No aphasia or dysarthria. Attention, concentration and fund of knowledge is adequate. On cranial nerve examination, pupils are equal, round and reacting to light, v isual nicole are full on confrontation, with no neglect on double simultaneous stimulation. Extraocular muscles are intact with no nystagmus. Face is symmetric, tongue protrudes to the midline. Palatal elevation and sensation normal, hearing and shoulder shrug normal, facial sensation normal. On muscle strength testing, there is no pronator drift and the strength is normal in arms distally and proximally. In the lower limbs, the muscle strength is hip flexion 4-/4-, ankle dorsiflexion 4/4+, toe extension 0/0. Deep tendon reflexes are symmetric 1+ at the biceps, 1+ pitting daily, 1+ at the knees, 0 ankles and plantars are flat. Sensory to touch is equal with no neglect on double simultaneous stimulation. Cerebellar function showed no ataxia for [id number] testing. No dysdiado chokinesia. No ataxia for [id number] testing on either side. Tone and bulk of muscles normal. Gait deferred.. On general examination, there is no carotid bruit or murmur, S1-S2 audible. Chest is clear on consultation. Abdomen is soft nontender. No organomegaly, bowel sounds present. Peripheral pulses are present. No peripheral edema. Results - Laboratory Findings CBC and BMP: 08/06/23 12:55 08/06/23 12:55 Abnormal Lab Findings: Abnormal Labs 08/06/23 08/06/23 12:55 12:55 Hct 47.3 H Plt Count 142 L BUN 18 H Creatinine 0.51 L Glucose 102 H Assessment and Plan Assessment: * Episode of dizziness while driving for which she pulled over and then was followed by a syncopal spell, unclear cause. * New onset cephalgia, unclear cause. * 2-3 week history of visual disturbance, with intermittent very brief lightning bolts/laser type visual disturbance involving his eyes, left > right side. Also gets intermittent different type of visual disturbance, consisting of partial graying of the vision in the left eye that lasts for 30-45 minutes. Rule out amaurosis fugax. * Hypertension * Hyperlipidemia * Tobacco use * Pulmonary nodule, to be addressed by IM. * Chronic back pain, history of spinal cord stimulator * Peripheral neuropathy, perhaps related to lumbar spine issues/previous surgery Plan: * Patient cannot have MRI of the brain because of presence of spinal cord stimulator. * CTA of head and neck revealed no significant diameter reduction to account for the patient's symptoms. Nodular density right upper lobe measuring 1.7 cm, requires a follow-up study in 2-3 months. No significant abnormality of the [facility] of [place]. Internal medicine to address pulmonary nodule. * Patient has been started on aspirin 325 mg daily. Concerned about optic ischemic neuropathy/concern for vision loss. We will also add Plavix 75 mg (DAPT) for now pending further workup. * 2-D echo with bubble study to rule out PFO * B12, folate, TSH, hemoglobin A1c, ESR, CRP and a lipid panel. * EEG for syncopal spell. * Telemetry monitoring, rule out arrhythmia. * Neurology will follow. Thank you for the consult. Time with Patient: Greater than 30
--- NOTE | 2023-08-07 11:17 | CA ---
Transthoracic Echo Report Name: Stefani Cheney Age: 72 Gender: F : 1950 Exam Date: 08/07/2023 09:03 Exam Location: [facility] Ht (in): 66 Wt (lb): 118 Ordering Physician: Cecile Lakhani MD Attending/Referring Phys: Certified Bench Jeweler Technician Chelsea Marion RDCS Procedure CPT: Indications: tia Cardiac Hx: Abnomen AO anurysm Technical Quality: Excellent Contrast 1: Agitated Saline Total Dose (mL): 2 Contrast 2: Total Dose (mL): MEASUREMENTS (Male / Female) Normal Values 2D ECHO LV Diastolic Diameter PLAX 5.1 cm 4.2 - 5.9 / 3.9 - 5.3 cm LV Systolic Diameter PLAX 3.1 cm IVS Diastolic Thickness 1.1 cm 0.6 - 1.0 / 0.6 - 0.9 cm LVPW Diastolic Thickness 1.0 cm 0.6 - 1.0 / 0.6 - 0.9 cm LV Relative Wall Thickness 0.4 RV Internal Dim ED PLAX 2.9 cm LA Systolic Diameter LX 3.8 cm 3.0 - 4.0 / 2.7 - 3.8 cm LV Diastolic Volume MOD BP 73.4 cm??? 67 - 155 / 56 - 104 cm??? LV Systolic Volume MOD BP 25.7 cm??? 22 - 58 / 19 - 49 cm??? LV Ejection Fraction MOD BP 65.0 % >= 55 % LV Cardiac Index MOD BP 1823.7 cm???/min???m??? LV Diastolic Volume MOD 4C 60.1 cm??? LV Systolic Volume MOD 4C 23.4 cm??? LV Ejection Fraction MOD 4C 61.1 % LV Cardiac Index MOD 4C 1400.3 cm???/min???m??? LV Diastolic Length 4C 6.3 cm LV Systolic Length 4C 5.6 cm LV Diastolic Volume MOD 2C 82.0 cm??? LV Systolic Volume MOD 2C 28.5 cm??? LV Ejection Fraction MOD 2C 65.3 % LV Cardiac Index MOD 2C 2042.9 cm???/min???m??? LV Diastolic Length 2C 7.1 cm LV Systolic Length 2C 5.6 cm LA Volume 60.4 cm??? 18 - 58 / 22 - 52 cm??? LA Volume Index 38.4 cm???/m??? 16 - 28 cm???/m??? M-MODE Aortic Root Diameter MM 3.0 cm MV E Point Septal Separation 0.8 cm AV Cusp Separation MM 2.1 cm DOPPLER AV Peak Velocity 139.0 cm/s AV Peak Gradient 7.7 mmHg MV Area PHT 3.8 cm??? Mitral E Point Velocity 76.5 cm/s Mitral A Point Velocity 54.1 cm/s Mitral E to A Ratio 1.4 MV Deceleration Time 198.5 ms MV E' Velocity 9.1 cm/s Mitral E to MV E' Ratio 8.4 TR Peak Velocity 286.8 cm/s TR Peak Gradient 32.9 mmHg Right Ventricular Systolic Press 37.5 mmHg FINDINGS Left Ventricle Left ventricular ejection fraction is estimated at 55-60 %. Left ventricular cavity size normal. Mildly increased septal wall thickness. Right Ventricle Normal right ventricular size. Mild pulmonary hypertension. Right ventricular systolic pressure estimated at 38 mm hg. Right Atrium Normal right atrial size. Negative agitated saline bubble study for right to left shunt. Left Atrium Mildly increased left atrial volume. Mitral Valve Structurally normal mitral valve. Trace to mild mitral regurgitation. Aortic Valve Trileaflet aortic valve. No aortic valve stenosis or regurgitation. Tricuspid Valve Structurally normal tricuspid valve. Mild tricuspid regurgitation. Pulmonic Valve Structurally normal pulmonic valve. No pulmonic regurgitation. Pericardium No pericardial effusion. Aorta Normal size aortic root and proximal ascending aorta. CONCLUSIONS Left ventricular ejection fraction is estimated at 55-60 %. Mild concentric LVH No obvious regional wall motion abnormality RVSP estimated at 38 mmHg, mild pulmonary hypertension Negative bubble study with no [id number] intracardiac shunting No significant valvular dysfunction Previewed by: Dr Adrian Worley (Electronically Signed) Final Date: 07 August 2023 11:16
--- NOTE | 2023-08-07 13:33 | P.HPIM ---
History of Present Illness H&P Date: 08/06/23 History of present illness; patient is a 72-year-old lady with past medical hi story significant for hypertension, abdominal aortic aneurysm presented to the ER because of blurred vision. Patient stated that for the last 2 weeks she has been having issues with her vision, patient stated that the physician becomes blurred at times, she feels like as if there is a lacy film over her eyes. Patient was also complaining of headache at that time was. Patient stated that during these episodes she see bolts off lights in her eyes. Today patient was driving when she started having similar complaints and the patient called her and while she was on the phone with him she passed out. Next thing she remembers she was in the hospital. One of the bystanders called EMS, patient also arrived at the spot and brought him to the ER Initial lab work done in the ER showed the bili 6.7, hemoglobin 15.4, platelet count 142, sodium 139 potassium 4.4, BUNs 18, creatinine 0.51 CT head negative for acute intra cranial process CTA head and neck negative for any acute abnormality. Patient admitted to internal medicine service REVIEW OF SYSTEMS: CONSTITUTIONAL: No fever, no malaise, no fatigue. HEENT: No recent visual problems or hearing problems. Denied any sore throat. CARDIOVASCULAR: No chest pain, orthopnea, PND, no palpitations, no syncope. PULMONARY: No shortness of breath, no cough, no hemoptysis. GASTROINTESTINAL: No diarrhea, no nausea, no vomiting, no abdominal pain. NEUROLOGICAL: As mentioned above HEMATOLOGICAL: Denies any bleeding or petechiae. GENITOURINARY: Denies any burning micturition, frequency, or urgency. MUSCULOSKELETAL/RHEUMATOLOGICAL: Denies any joint pain, swelling, or any muscle pain. ENDOCRINE: Denies any polyuria or polydipsia. The rest of the 14-point review of systems is negative. PHYSICAL EXAMINATION: GENERAL: The patient is alert and oriented x3, not in any acute distress. Well developed, well nourished. HEENT: Pupils are round and equally reacting to light. EOMI. No scleral icterus. No conjunctival pallor. Normocephalic, atraumatic. No pharyngeal erythema. No thyromegaly. CARDIOVASCULAR: S1 and S2 present. No murmurs, rubs, or gallops. PULMONARY: Chest is clear to auscultation, no wheezing or crackles. ABDOMEN: Soft, nontender, nondistended, normoactive bowel sounds. No palpable organomegaly. MUSCULOSKELETAL: No joint swelling or deformity. EXTREMITIES: No cyanosis, clubbing, or pedal edema. NEUROLOGICAL: Gross neurological examination did not reveal any focal deficits. SKIN: No rashes. Assessment and plan Blurred vision syncopal episode Cephalgia Hypertension Hyperlipidemia Pulmonary nodule Chronic back pain peripheral neuropathy Monitor vital signs Monitor CBC Monitor CMP Continue telemetry monitoring Continue neuro checks Ordered 2-D echo Continue aspirin and Lipitor Consult neurology Labs and medication were reviewed.. Continue same treatment. Continue with symptomatic treatment. Resume home medication. Monitor labs and vitals. DVT and GI prophylaxis. Further recommendations as per clinical course of the patient Dictation was produced using [employer] dictation software. please excuse any grammatical, word or spelling errors. Past Medical History Past Medical History: Cancer, COPD, Hyperlipidemia, Hypertension, Thyroid Disorder Additional Past Medical History / Comment(s): neuropathy, aneursym skin cancer buttocks and lip History of Any Multi-Drug Resistant Organisms: None Reported Past Surgical History: Back Surgery, Breast Surgery, Section, Hysterectomy Additional Past Surgical History / Comment(s): 3 lower back surgeries- has implants and thuy, bilateral breast cystectomies, 4 C-Sections, surgery to rt lung to repair holes in lungs "stented and coiled", bilat cataract, skincancer removed from buttocks, nerverblock implant buttocks Past Anesthesia/Blood Transfusion Reactions: No Reported Reaction Additional Past Anesthesia/Blood Transfusion Reaction / Comment(s): Pt has never recieved blood. Past Psychological History: No Psychological Hx Reported Smoking Status: Current every day smoker - Past Family History Brother(s) Family Medical History: Cancer Sister(s) Family Medical History: Cancer Father Family Medical History: Myocardial Infarction ([place]) Additional Family Medical History / Comment(s): Father at age 52 yrs of a [place]. Mother Family Medical History: Cancer, Coronary Artery Disease (CAD), Hyperlipidemia Additional Family Medical History / Comment(s): Mother at age 72 yrs of lung cancer. Medications and Allergies Home Medications Medication Instructions Recorded Confirmed Type Atenolol [Tenormin] 25 mg PO DAILY 11/06/14 08/06/23 History Baclofen 30 mg PO HS 11/06/14 08/06/23 History Levothyroxine Sodium [Synthroid] 50 mcg PO DAILY 07/05/15 08/06/23 History clonazePAM 2 mg PO HS 07/05/15 08/06/23 History Albuterol Sulfate [Ventolin HFA] 2 puff INHALATION RT-QID PRN 08/06/23 08/06/23 History Pregabalin [Lyrica] 75 mg PO DIRECTED 08/06/23 08/06/23 History cycloSPORINE 0.05% OPHTH SOLN 1 drop BOTH EYES Q12H 08/06/23 08/06/23 History [Restasis] Aspirin 81 mg PO DAILY 30 Days #30 tab 08/07/23 Rx Atorvastatin [Lipitor] 40 mg PO HS 30 Days #30 tab 08/07/23 Rx Clopidogrel [Plavix] 75 mg PO DAILY 21 Days #21 tab 08/07/23 Rx Cyanocobalamin [Vitamin B-12] 500 mcg PO DAILY 30 Days #30 tablet 08/07/23 Rx Allergies Allergy/AdvReac Type Severity Reaction Status Date / Time amoxicillin Allergy Swelling Verified 08/06/23 15:09 all over Penicillins Allergy Swelling Verified 08/06/23 15:09 all over Physical Exam Vitals: Vital Signs Temp Pulse Resp BP BP BP Pulse Ox 08/06/23 13:54 57 L 18 153/81 95 08/06/23 13:07 18 186/97 175/85 08/06/23 12:33 97.2 F L 60 16 165/110 96 Intake and Output 08/05/23 08/06/23 08/06/23 22:59 06:59 14:59 Other: Weight 53.524 kg Results CBC & Chem 7: 08/06/23 12:55 08/06/23 12:55 Labs: Abnormal Lab Results - Last 24 Hours (Table) 08/06/23 08/06/23 Range/Units 12:55 12:55 Hct 47.3 H (34.0-46.0) % Plt Count 142 L (150-450) k/uL BUN 18 H (7-17) mg/dL Creatinine 0.51 L (0.52-1.04) mg/dL Glucose 102 H (74-99) mg/dL
--- NOTE | 2023-08-07 13:36 | P.DS ---
Providers Date of admission: 08/06/23 15:25 Expected date of discharge: 08/07/23 Attending physician: Lio Shin MD Consults: 08/06/23 14:37 Consult Physician Routine Consulting Provider: Cecile Lakhani Consult Reason/Comments: Blurred vision, syncope Do you want consulting provider notified?: Yes Primary care physician: Zachary Mina Hospital Course: Discharge diagnoses; Blurred vision resolved syncopal episode Cephalgia resolved Hypertension Hyperlipidemia Pulmonary nodule Chronic back pain peripheral neuropathy Hospital course; patient is a 72-year-old lady with past medical history significant for hypertension, abdominal aortic aneurysm presented to the ER because of blurred vision. Patient stated that for the last 2 weeks she has been having issues with her vision, patient stated that the physician becomes blurred at times, she feels like as if there is a lacy film over her eyes. Patient was also complaining of headache at that time was. Patient stated that during these episodes she see bolts off lights in her eyes. Today patient was driving when she started having similar complaints and the patient called her and while she was on the phone with him she passed out. Next thing she remembers she was in the hospital. One of the bystanders called EMS, patient also arrived at the spot and brought him to the ER Initial lab work done in the ER showed wbc 6.7, hemoglobin 15.4, platelet count 142, sodium 139 potassium 4.4, BUNs 18, creatinine 0.51 CT head negative for acute intra cranial process CTA head and neck negative for any acute abnormality. Patient admitted to internal medicine service 08/07. Patient seen and examined. Neurology evaluated the patient, 2-D echo reviewed showed no regional wall abnormality, mild pulmonary hypertension, negative bubble study, no significant valvular dysfunction. Neurology recommended sending patient home on dual antiplatelet therapy aspirin plus Plavix for 21 days followed by aspirin indefinitely, they recommend outpatient neurology follow-up. Regarding pulmonary nodule, patient needs CT chest in 3 months PHYSICAL EXAMINATION: GENERAL: The patient is alert and oriented x3, not in any acute distress. Well developed, well nourished. HEENT: Pupils are round and equally reacting to light. EOMI. No scleral icterus. No conjunctival pallor. Normocephalic, atraumatic. No pharyngeal erythema. No thyromegaly. CARDIOVASCULAR: S1 and S2 present. No murmurs, rubs, or gallops. PULMONARY: Chest is clear to auscultation, no wheezing or crackles. ABDOMEN: Soft, nontender, nondistended, normoactive bowel sounds. No palpable organomegaly. MUSCULOSKELETAL: No joint swelling or deformity. EXTREMITIES: No cyanosis, clubbing, or pedal edema. NEUROLOGICAL: Gross neurological examination did not reveal any focal deficits. SKIN: No rashes. Dictation was produced using [employer] dictation software. please excuse any grammatical, word or spelling errors. Plan - Discharge Summary New Discharge Prescriptions: New Aspirin 81 mg PO DAILY 30 Days #30 tab Atorvastatin [Lipitor] 40 mg PO HS 30 Days #30 tab Clopidogrel [Plavix] 75 mg PO DAILY 21 Days #21 tab Cyanocobalamin [Vitamin B-12] 500 mcg PO DAILY 30 Days #30 tablet Continue Atenolol [Tenormin] 25 mg PO DAILY Baclofen 30 mg PO HS Levothyroxine Sodium [Synthroid] 50 mcg PO DAILY clonazePAM 2 mg PO HS Pregabalin [Lyrica] 75 mg PO DIRECTED cycloSPORINE 0.05% OPHTH SOLN [Restasis] 1 drop BOTH EYES Q12H Albuterol Sulfate [Ventolin HFA] 2 puff INHALATION RT-QID PRN PRN Reason: Shortness Of Breath Discontinued Atorvastatin [Lipitor] 20 mg PO DAILY Discharge Medication List Atenolol [Tenormin] 25 mg PO DAILY 11/06/14 [History] Baclofen 30 mg PO HS 11/06/14 [History] Levothyroxine Sodium [Synthroid] 50 mcg PO DAILY 07/05/15 [History] clonazePAM 2 mg PO HS 07/05/15 [History] Albuterol Sulfate [Ventolin HFA] 2 puff INHALATION RT-QID PRN 08/06/23 [History] Pregabalin [Lyrica] 75 mg PO DIRECTED 08/06/23 [History] cycloSPORINE 0.05% OPHTH SOLN [Restasis] 1 drop BOTH EYES Q12H 08/06/23 [History] Aspirin 81 mg PO DAILY 30 Days #30 tab 08/07/23 [Rx] Atorvastatin [Lipitor] 40 mg PO HS 30 Days #30 tab 08/07/23 [Rx] Clopidogrel [Plavix] 75 mg PO DAILY 21 Days #21 tab 08/07/23 [Rx] Cyanocobalamin [Vitamin B-12] 500 mcg PO DAILY 30 Days #30 tablet 08/07/23 [Rx] Follow up Appointment(s)/Referral(s): Zachary Mina DO [Primary Care Provider] - 1-2 days Activity/Diet/Wound Care/Special Instructions: Aspirin and Plavix for 21 days followed by aspirin indefinitely Discharge Disposition: HOME SELF-CARE
[2023-08-07 13:53] VITALS: BP 116/65; PULSE 60; RESP 16; TEMP 97.9
[2023-08-07] MEDS ORDERED: CYANOCOBALAMIN 1,000 MCG/ML 1 ML VIAL IM ONE (14:00)
[2023-08-07] MEDS ORDERED: ATORVASTATIN 40 MG TAB PO SCH (21:00)
--- NOTE | 2023-08-10 17:36 | P.PN ---
Subjective Progress Note Date: 08/07/23 Patient was seen for a follow-up. Patient is sitting comfortably in the bed. Patient denies any further visual disturbance. She is doing well with dual antiplatelet medication. Patient wants to go home. Objective - Vital Signs Vital signs: Vital Signs Temp 97.9 F 08/07/23 13:44 Pulse 60 08/07/23 13:44 Resp 16 08/07/23 13:44 BP 116/65 08/07/23 13:44 Pulse Ox 93 L 08/07/23 13:44 FiO2 Intake & Output 08/06/23 08/07/23 08/07/23 18:59 06:59 18:59 Intake Total 478 Balance 478 Weight 53.524 kg 53.524 kg Intake: Oral 478 Other: # Voids 3 2 - Exam Patient's mental status, speech and language function are normal. Cranial nerves are normal muscle strength normal. No ataxia. Sensations equal. - Labs CBC & Chem 7: 08/06/23 12:55 08/06/23 12:55 Labs: Abnormal Lab Results - Last 24 Hours (Table) 08/07/23 Range/Units 05:40 TSH 6.450 H (0.350-5.500) UIU/ML Assessment and Plan Assessment: * Episode of dizziness while driving for which she pulled over and then was followed by a syncopal spell, unclear cause. * New onset cephalgia, unclear cause, much improved now. * 2-3 week history of visual disturbance, with intermittent very brief lightning bolts/laser type visual disturbance involving his eyes, left > right side. Also gets intermittent different type of visual disturbance, consisting of partial graying of the vision in the left eye that lasts for 30-45 minutes. Rule out amaurosis fugax. * Hypertension * Hyperlipidemia * Tobacco use * Vitamin B12 deficiency * Pulmonary nodule, to be addressed by IM. * Chronic back pain, history of spinal cord stimulator * Peripheral neuropathy, perhaps related to lumbar spine issues/previous surgery Plan: * Patient cannot have MRI of the brain because of presence of spinal cord stimulator. * CTA of head and neck revealed no significant diameter reduction to account for the patient's symptoms. Nodular density right upper lobe measuring 1.7 cm, requires a follow-up study in 2-3 months. No significant abnormality of the [place] of [place]. Internal medicine to address pulmonary nodule. * Patient has been started on aspirin 325 mg daily. Concerned about optic ischemic neuropathy/concern for vision loss. We will also add Plavix 75 mg (DAPT) for now pending further workup. Continue DAPT with aspirin 81 mg and Plavix 75 mg daily. * 2-D echo revealed left ventricular ejection fraction is estimated at 55-60%. Mild concentric LVH. No obvious regional wall motion abnormality. Negative bubble study with no right to left intracardiac shunting. No significant valvular dysfunction. * B12 296, folate 10.30, methylmalonic acid is elevated 0.58, TSH 6.45, free T4 1.39, hemoglobin A1c 5.8, ESR 3, CRP < 0.5. Patient given vitamin B12 1000 g IM injections 1. Recommended to continue vitamin B12 500 g orally daily. * Lipid panel with cholesterol 161, LDL 82, HDL 53 and triglycerides 124. Patient started on Lipitor 40 mg daily. * EEG cannot be done because no catheterization laboratory technician available. Patient will have EEG p erformed at her neurologist Dr. Khan. * No driving. Patient to follow up with neurologist for further recommendation regarding driving. * Patient counseled about tobacco cessation, but she overtly declines tobacco cessation. * Neurologically clear for discharge.
== END 2023-08-07 16:10 | disposition home or self-care (01) ==
LOC: EC 12:30 → 6NMEDSUR 15:25
PROVIDERS: ADMIT Internal Medicine; ATTEND Internal Medicine
DX: I16.0 Hypertensive urgency (principal); I10 Essential (primary) hypertension; R55 Syncope and collapse; J44.9 Chronic obstructive pulmonary disease, unspecified; E78.5 Hyperlipidemia, unspecified; G62.9 Polyneuropathy, unspecified; M54.9 Dorsalgia, unspecified; G89.29 Other chronic pain; R91.1 Solitary pulmonary nodule; E53.8 Deficiency of other specified B group vitamins; I71.40 Abdominal aortic aneurysm, without rupture, unspecified; F17.200 Nicotine dependence, unspecified, uncomplicated; Z85.828 Personal history of other malignant neoplasm of skin; Z96.82 Presence of neurostimulator; Z79.890 Hormone replacement therapy; Z79.899 Other long term (current) drug therapy; Z79.82 Long term (current) use of aspirin; Z79.02 Long term (current) use of antithrombotics/antiplatelets; Z88.0 Allergy status to penicillin
CPT/HCPCS: 96372; 96376; 96374; 99285; 36415; 94760; 93005; 93306; 97161; 97165; 83921; 84439; 83880; 80061; 80053; 85652; 84443; 82607; 82550; 82746; 84484; 85025; 85610; 85730; 86140; 83036; 71046; 70496; 70450; 70498; G0378 ×2; J3420; J1170; Q9967

== ENCOUNTER 2023-10-12 00:55 | Emergency (ER) | payer BC, MEDICARE ==
--- NOTE | 2023-10-12 01:21 | ED ---
General Adult HPI - General Chief complaint: Fall Stated complaint: chest pain,sob Time Seen by Provider: 10/12/23 01:04 Source: EMS Mode of arrival: EMS Limitations: no limitations - History of Present Illness Initial comments: Dictation was produced using [employer] dictation software. please excuse any grammatical, word or spelling errors. Chief Complaint: 73-year-old female presents after syncopal episode History of Present Illness: Patient 73-year-old female she has a past medical history of neuropathy. She also has history of syncope. Patient states that she got up in the middle night to go to the bathroom. She was then washing her hands when all of a sudden she felt faint and fell backwards and hit the back of her head and hurt her neck. Patient had a syncopal episode several months ago. She has no history of cardiac disease. Patient also complaining of some right hip pain. She does not take any anticoagulation medications. The ROS documented in this emergency department record has been reviewed and confirmed by me. Those systems with pertinent positive or negative responses have been documented in the HPI. All other systems are other negative and/or noncontributory. - Related Data Home Medications Medication Instructions Recorded Confirmed Atenolol [Tenormin] 25 mg PO DAILY 11/06/14 08/06/23 Baclofen 30 mg PO HS 11/06/14 08/06/23 Levothyroxine Sodium [Synthroid] 50 mcg PO DAILY 07/05/15 08/06/23 clonazePAM 2 mg PO HS 07/05/15 08/06/23 Albuterol Sulfate [Ventolin HFA] 2 puff INHALATION RT-QID PRN 08/06/23 08/06/23 Pregabalin [Lyrica] 75 mg PO DIRECTED 08/06/23 08/06/23 cycloSPORINE 0.05% OPHTH SOLN 1 drop BOTH EYES Q12H 08/06/23 08/06/23 [Restasis] Previous Rx's Medication Instructions Recorded Aspirin 81 mg PO DAILY 30 Days #30 tab 08/07/23 Atorvastatin [Lipitor] 40 mg PO HS 30 Days #30 tab 08/07/23 Clopidogrel [Plavix] 75 mg PO DAILY 21 Days #21 tab 08/07/23 Cyanocobalamin [Vitamin B-12] 500 mcg PO DAILY 30 Days #30 tablet 08/07/23 Allergies Allergy/AdvReac Type Severity Reaction Status Date / Time amoxicillin Allergy Swelling Verified 08/06/23 15:09 all over Penicillins Allergy Swelling Verified 08/06/23 15:09 all over Review of Systems ROS Statement: Those systems with pertinent positive or pertinent negative responses have been documented in the HPI. ROS Other: All systems not noted in ROS Statement are negative. Past Medical History Past Medical History: Cancer, COPD, Hyperlipidemia, Hypertension, Thyroid Disorder Additional Past Medical History / Comment(s): neuropathy, aneursym skin cancer buttocks and lip History of Any Multi-Drug Resistant Organisms: None Reported Past Surgical History: Back Surgery, Breast Surgery, Section, Hysterectomy Additional Past Surgical History / Comment(s): 3 lower back surgeries- has implants and thuy, bilateral breast cystectomies, 4 C-Sections, surgery to rt lung to repair holes in lungs "stented and coiled", bilat cataract, skincancer removed from buttocks, nerverblock implant buttocks Past Anesthesia/Blood Transfusion Reactions: No Reported Reaction Additional Past Anesthesia/Blood Transfusion Reaction / Comment(s): Pt has never recieved blood. Past Psychological History: No Psychological Hx Reported Smoking Status: Current every day smoker - Past Family History Brother(s) Family Medical History: Cancer Sister(s) Family Medical History: Cancer Father Family Medical History: Myocardial Infarction (MD) Additional Family Medical History / Comment(s): Father at age 52 yrs of a MD. Mother Family Medical History: Cancer, Coronary Artery Disease (CAD), Hyperlipidemia Additional Family Medical History / Comment(s): Mother at age 72 yrs of lung cancer. General Exam - General Exam Comments Initial Comments: PHYSICAL EXAM: General Impression: Alert and oriented x3, not in acute distress HEENT: Normocephalic atraumatic, extra-ocular movements intact, pupils equal and reactive to light bilaterally, mucous membranes moist. Cardiovascular: Heart regular rate and rhythm Chest: Able to complete full sentences, no retractions, no tachypnea Abdomen: abdomen soft, non-tender, non-distended, no organomegaly Musculoskeletal: Pulses present and equal in all extremities, no peripheral edema Motor: no focal deficits noted Neurological: CN II-XII grossly intact, no focal motor or sensory deficits noted Skin: Intact with no visualized rashes Psych: Normal affect and mood Limitations: no limitations Course Vital Signs 10/12/23 10/12/23 00:58 02:03 Temperature 98.2 F Pulse Rate 86 80 Respiratory 20 16 Rate Blood Pressure 125/65 124/63 O2 Sat by Pulse 100 99 Oximetry EKG Findings - EKG Comments: EKG Findings:: My EKG interpretation: Ventricular rate 82, sinus rhythm,. 139, QRS 109, QTc 417. No NE prolongation, no QTC prolongation, no ST or T-wave changes noted. Overall, this EKG is unremarkable Medical Decision Making - Medical Decision Making Was pt. sent in by a medical professional or institution (, PA, S[employer], urgent care, hospital, or shelter...) When possible be specific @ -No Did you speak to anyone other than the patient for history (EMS, parent, family, police, friend...)? What history was obtained from this source @ -No Did you review nursing and triage notes (agree or disagree)? Why? @ -I reviewed and agree with nursing and triage notes Were old charts reviewed (outside hosp., previous admission, EMS record, old EKG, old radiological studies, urgent care reports/EKG's, shelter records)? Report findings @ -No old charts were reviewed Differential Diagnosis (chest pain, altered mental status, abdominal pain women, abdominal pain men, vaginal bleeding, musculoskeletal, weakness, fever, dyspnea, syncope, headache, dizziness, GI bleed, back pain, seizure, CVA, palpatations, mental health)? @ -Differential Syncope: Valvular disease, hypertrophic cardiomyopathy, pulmonary embolism, tamponade, tachycardia, bradycardia, MD, hypovolemia, hemorrhage, dissection, anemia, intracranial hemorrhage, seizure, hypoglycemia, carbon monoxide poisoning, this is not meant to be an all-inclusive list. EKG interpreted by me (3pts min.). @ -See above X-rays interpreted by me (1pt min.). @ -Chest x-ray femur x-ray right pelvis is unremarkable for any acute processes CT interpreted by me (1pt min.). @ -None done U/S interpreted by me (1pt. min.). @ -None done What testing was considered but not performed or refused? (CT, X-rays, U/S, labs)? Why? @ -None What meds were considered but not given or refused? Why? @ -None Did you discuss the management of the patient with other professionals (professionals i.e. , PA, [employer], lab, RT, psych nurse, manager social media, press hand supervisor, teacher, principal gifts officer, renal case manager)? Give summary @ -No Was smoking cessation discussed for >3mins.? @ -No Was critical care preformed (if so, how long)? @ -No Were there social determinants of health that impacted care today? How? (Homelessness, low income, unemployed, alcoholism, drug addiction, transportation, low edu. Level, literacy, decrease access to med. care, [facility], rehab)? @ -No Was there de-escalation of care discussed even if they declined (Discuss DNR or withdrawal of care, Hospice)? DNR status @ -No What co-morbidities impacted this encounter? (DM, HTN, Smoking, COPD, CAD, Cancer, CVA, ARF, Chemo, Hep., AIDS, mental health diagnosis, sleep apnea, morbid obesity)? @ -None Was patient admitted / discharged? Hospital course, mention meds given and route, prescriptions, significant lab abnormalities, going to OR and other pertinent info. @ -73-year-old female with no history of cardiac conditions presents to the emergency department for syncopal episode. Vital signs upon arrival are within acceptable limits. EKG is unremarkable. Patient well-appearing at the bedside. Laboratory evaluation is unremarkable. Patient observed emergency department stable medical addition. Patient ambulated and states that she feels baseline. Disposition options were discussed. Patient agreeable for discharge with close follow-up with her primary care doctor. Return precautions discussed. Undiagnosed new problem with uncertain prognosis? @ -No Drug Therapy requiring intensive monitoring for toxicity (Heparin, Nitro, I nsulin, Cardizem)? @ -No Were any procedures done? @ -No Diagnosis/symptom? Acute, or Chronic, or Acute on Chronic? Uncomplicated (without systemic symptoms) or Complicated (systemic symptoms)? @ -Syncope, no high risk features Side effects of treatment? @ -No Exacerbation, Progression, or Severe Exacerbation? @ -No Poses a threat to life or bodily function? How? (Chest pain, USA, MD, pneumonia, PE, COPD, DKA, ARF, appy, cholecystitis, CVA, Diverticulitis, Homicidal, Suicidal, threat to staff... and all critical care pts) @ -No - Lab Data Result diagrams: 10/12/23 00:58 10/12/23 00:58 Lab Results 10/12/23 10/12/23 Range/Units 00:58 00:58 WBC 4.7 (3.8-10.6) k/uL RBC 4.50 (3.80-5.40) m/uL Hgb 13.9 (11.4-16.0) gm/dL Hct 42.1 (34.0-46.0) % MCV 93.3 (80.0-100.0) fL MCH 30.9 (25.0-35.0) pg MCHC 33.1 (31.0-37.0) g/dL RDW 13.9 (11.5-15.5) % Plt Count 138 L (150-450) k/uL MPV 7.2 Neutrophils % 79 % Lymphocytes % 11 % Monocytes % 6 % Eosinophils % 1 % Basophils % 0 % Neutrophils # 3.7 (1.3-7.7) k/uL Lymphocytes # 0.5 L (1.0-4.8) k/uL Monocytes # 0.3 (0-1.0) k/uL Eosinophils # 0.1 (0-0.7) k/uL Basophils # 0.0 (0-0.2) k/uL Sodium 137 (137-145) mmol/L Potassium 4.2 (3.5-5.1) mmol/L Chloride 106 (98-107) mmol/L Carbon Dioxide 24 (22-30) mmol/L Anion Gap 7 mmol/L BUN 13 (7-17) mg/dL Creatinine 0.66 (0.52-1.04) mg/dL Est GFR (CKD-EPI)AfAm >90 (>60 ml/min/1.73 sqM) Est GFR (CKD-EPI)NonAf 89 (>60 ml/min/1.73 sqM) Glucose 114 H (74-99) mg/dL Calcium 9.1 (8.4-10.2) mg/dL Disposition Clinical Impression: Syncope Disposition: HOME SELF-CARE Condition: Fair Instructions (If sedation given, give patient instructions): Syncope (ED) Is patient prescribed a controlled substance at d/c from ED?: No Referrals: Zachary Mina DO [Primary Care Provider] - 1-2 days Time of Disposition: 03:21
[2023-10-12 01:24] LABS: Basophils % (A) 0 %; Eosinophils # (A) 0.1 k/uL (0-0.7); Eosinophils % (A) 1 %; HCT 42.1 % (34.0-46.0); HGB 13.9 gm/dL (11.4-16.0); Lymphocytes # (A) 0.5 k/uL (1.0-4.8); Lymphocytes % (A) 11 %; MCH 30.9 pg (25.0-35.0); MCHC 33.1 g/dL (31.0-37.0); MCV 93.3 fL (80.0-100.0); Mean Platelet Volume 7.2; Monocytes # (A) 0.3 k/uL (0-1.0); Monocytes % (A) 6 %; Neutrophils # (A) 3.7 k/uL (1.3-7.7); Neutrophils % (A) 79 %; Platelet Count 138 k/uL (150-450); RDW 13.9 % (11.5-15.5); WBC 4.7 k/uL (3.8-10.6)
[2023-10-12 01:31] LABS: African American GFR (CKD) >90 (>60 ml/min/1.73 sqM); Anion Gap 7 mmol/L; Blood Urea Nitrogen 13 mg/dL (7-17); Calcium 9.1 mg/dL (8.4-10.2); Carbon Dioxide 24 mmol/L (22-30); Chloride 106 mmol/L (98-107); Glucose 114 mg/dL (74-99); Non-African American GFR(CKD) 89 (>60 ml/min/1.73 sqM); Potassium 4.2 mmol/L (3.5-5.1); Sodium 137 mmol/L (137-145)
--- NOTE | 2023-10-12 01:57 | XR ---
EXAM: XR Right Femur, 2 Views CLINICAL HISTORY: ITS.REASON XR Reason: syncope and fall TECHNIQUE: Frontal and lateral views of the right femur. COMPARISON: No relevant prior studies available. FINDINGS: Bones/joints: Unremarkable. No acute fracture. No dislocation. Soft tissues: Unremarkable. Vasculature: Vascular calcifications. IMPRESSION: No acute findings in the right femur.
--- NOTE | 2023-10-12 01:58 | XR ---
EXAM: XR Chest, 1 View CLINICAL HISTORY: ITS.REASON XR Reason: syncope and fall TECHNIQUE: Frontal view of the chest. COMPARISON: No relevant prior studies available. FINDINGS: Lungs: Mild pulmonary vascular congestion. No consolidation. Pleural space: Unremarkable. No pneumothorax. Heart: Cardiomegaly. Mediastinum: Unremarkable. Normal mediastinal contour. Bones/joints: Unremarkable. No acute fracture. IMPRESSION: Mild pulmonary vascular congestion.
--- NOTE | 2023-10-12 02:31 | CT ---
EXAM: CT Head Without Intravenous Contrast CLINICAL HISTORY: ITS.REASON CT Reason: syncope and fall TECHNIQUE: Axial computed tomography images of the head/brain without intravenous contrast. CTDI is 45.2 mGy and DLP is 1061.5 mGy-cm. This CT exam was performed using one or more of the following dose reduction techniques: automated exposure control, adjustment of the mA and/or kV according to patient size, and/or use of iterative reconstruction technique. COMPARISON: No relevant prior studies available. FINDINGS: Brain: No hemorrhage or mass effect. Ventricles: No hydrocephalus. Bones/joints: Unremarkable. Soft tissues: Unremarkable. Sinuses: No air fluid level. Mastoid air cells: Moderate left mastoid effusion. IMPRESSION: No acute hemorrhage, hydrocephalus, or mass effect. Moderate left mastoid effusion. EXAM: CT Cervical Spine Without Intravenous Contrast CLINICAL HISTORY: ITS.REASON CT Reason: syncope and fall TECHNIQUE: Axial computed tomography images of the cervical spine without intravenous contrast. CTDI is 8.2 mGy and DLP is 269.7 mGy-cm. This CT exam was performed using one or more of the following dose reduction techniques: automated exposure control, adjustment of the mA and/or kV according to patient size, and/or use of iterative reconstruction technique. COMPARISON: 08/06/2023 FINDINGS: Vertebrae: No acute fracture. Discs/spinal canal/neural foramina: degenerative changes. Soft tissues: No prevertebral swelling. Severe COPD. Redemonstration of nodular opacity in the right upper lobe IMPRESSION: No acute fracture or subluxation. Severe COPD. Redemonstration of nodular opacity in the right upper lobe.
[2023-10-12 03:58] VITALS: BP 123/58; PULSE 82; RESP 18; TEMP 98.1
== END 2023-10-12 03:37 | disposition home or self-care (01) ==
LOC: EC 00:55
DX: R55 Syncope and collapse (principal); R07.9 Chest pain, unspecified; M25.551 Pain in right hip; R51.9 Headache, unspecified; I10 Essential (primary) hypertension; J44.9 Chronic obstructive pulmonary disease, unspecified; E07.9 Disorder of thyroid, unspecified; F17.200 Nicotine dependence, unspecified, uncomplicated; Z79.890 Hormone replacement therapy; Z79.899 Other long term (current) drug therapy; Z88.0 Allergy status to penicillin; W18.30XA Fall on same level, unspecified, initial encounter; Y92.009 Unspecified place in unspecified non-institutional (private) residence as the place of occurrence of the external cause
CPT/HCPCS: 36415; 70450; 71045; 72125; 80048; 85025; 93005; 99284

== ENCOUNTER → 2024-10-13 | Outpatient (CLI) | payer MEDICARE ==
--- NOTE | 2024-10-13 09:39 | US ---
EXAMINATION TYPE: US Aorta Screening DATE OF EXAM: 10/13/2024 COMPARISON: CT: 09/28/20 CLINICAL INDICATION: Female, 74 years old with history of I71.40 ABDOMINAL AORTIC ANEURYSM, WITHOUT R UPTURE,; Hx of thoracic aneurysm seen on CT TECHNIQUE: Multiple sonographic images of the abdominal aorta are obtained with grayscale and color D oppler imaging. FINDINGS: EXAM MEASUREMENTS: Abdominal Aorta: Proximal: 2.6 x 2.6cm Mid: 2.5 x 2.6cm Distal: 2.3 x 1.7cm Bifurcation: Right Iliac: 1.1 x 1.1cm Left Iliac: 1.2 x 1.1cm TANKER SERVICE ATTENDANT NOTES: plaque seen throughout aorta. Near mid/distal aorta there is dilation seen, but no t measuring over 3cm. IMPRESSION: Atherosclerotic plaque seen throughout the aorta with ectasia of the proximal and mid abdominal aort a measuring up to 2.6 cm. No abdominal aortic aneurysm. [facility], , 10/13/2024 9:37 AM
== END | disposition home or self-care (01) ==
LOC: RADUSWWP 08:44
PROVIDERS: ATTEND Student in an Organized Health Care Education/Training Program
DX: Z13.6 Encounter for screening for cardiovascular disorders (principal); I77.811 Abdominal aortic ectasia; I70.0 Atherosclerosis of aorta; Z86.79 Personal history of other diseases of the circulatory system
CPT/HCPCS: 76706